=== PATIENT | female | born 1940 | race American Indian/Alaskan Native ===

== ENCOUNTER 2018-08-17 09:55 | Inpatient (IN) | payer MEDICAID ==
[2018-08-17 10:18] VITALS: BMI 24.6
[2018-08-17] MEDS ORDERED: Sodium Chloride 0.9% 1,000 ML IV ONE (10:33)
--- NOTE | 2018-08-17 11:02 | ED PDOC ---
Arrival/HPI - General Chief Complaint: Fever Time Seen by Provider: 08/17/18 10:20 Historian: Patient - History of Present Illness Narrative History of Present Illness (Text): 08/17/18 10:57 78yo female with past medical history of hypertension, Diabetes, renal insufficiency bib the daughter for complaint of fever (Tmax of 102), yellowish productive cough, decreased appetite, generalized weakness x 4days. States she took Tylenol last night. Denies chest pain, SOB, diaphoresis, nausea, abdominal pain, urinary symptoms, sick contact, night sweats, travel, any other complaint. Past Medical History - Provider Review Nursing Documentation Reviewed: Yes - Infectious Disease Hx of Infectious Diseases: None - Cardiac Hx Cardiac Disorders: Yes Hx Hypertension: Yes - Pulmonary Hx Respiratory Disorders: No - Neurological Hx Neurological Disorder: No - HEENT Hx HEENT Disorder: No - Renal Hx Renal Disorder: Yes Other/Comment: Chronic Kidney Disease - Endocrine/Metabolic Hx Endocrine Disorders: Yes Hx Diabetes Mellitus Type 2: Yes Hx Hyperthyroidism: Yes - Hematological/Oncological Hx Blood Disorders: Yes Hx Anemia: Yes - Integumentary Hx Dermatological Disorder: No - Musculoskeletal/Rheumatological Hx Musculoskeletal Disorders: No - Gastrointestinal Hx Gastrointestinal Disorders: No - Genitourinary/Gynecological Hx Genitourinary Disorders: No - Psychiatric Hx Psychophysiologic Disorder: No Hx Substance Use: No - Surgical History Hx Hysterectomy: Yes Other/Comment: Right Breast Lumpectomy - Suicidal Assessment Feels Threatened In Home Enviroment: No Family/Social History - Physician Review Nursing Documentation Reviewed: Yes Family/Social History: Unknown Family HX Smoking Status: Never Smoked Hx Alcohol Use: No Hx Substance Use: No Allergies/Home Meds Allergies/Adverse Reactions: Allergies No Known Allergies Allergy (Verified 08/17/18 10:06) Home Medications: Home Meds Medication Instructions Recorded Confirmed Docusate [Colace] 100 mg PO TID 02/17/13 08/17/18 Hydralazine Hydrochloride 100 mg PO TID 02/17/13 08/17/18 [Hydralazine] Carboxymethylcellulos/Glycerin 1 drop BOTHEYES QID 08/17/18 08/17/18 [Refresh Optive Eye Drops] Doxazosin [Cardura] 2 mg PO DAILY 08/17/18 08/17/18 Epoetin Nabil [Procrit] 40,000 units INJ QWK 08/17/18 08/17/18 Ferrous Sulfate [Feosol] 325 mg PO DAILY 08/17/18 08/17/18 Isosorbide Mononitrate [Isosorbide 30 mg PO TID 08/17/18 08/17/18 Mononitrate ER] Ketorolac Tromethamine [Acular 5 5 ml OP DAILY 08/17/18 08/17/18 ml] Metoprolol Tartrate [Lopressor] 100 mg PO BID 08/17/18 08/17/18 RX: Chlorthalidone [Hygroton] 25 mg PO BID 08/17/18 08/17/18 RX: Gabapentin [Neurontin] 100 mg PO BID 08/17/18 08/17/18 RX: Glimepiride [amaRYL] 2 mg PO DAILY 08/17/18 08/17/18 RX: amLODIPine [Norvasc] 5 mg PO DAILY 08/17/18 08/17/18 Vitamin B Complex/Vit C/Folic 1 tab PO DAILY 08/17/18 08/17/18 [Nephro-Arnoldo] Review of Systems - Physician Review All systems were reviewed & negative as marked: Yes - Review of Systems Constitutional: Fatigue, Fevers Eyes: Normal ENT: Normal Respiratory: Cough, Sputum Cardiovascular: Normal Gastrointestinal: Normal Genitourinary Female: Normal Musculoskeletal: Normal Skin: Normal Neurological: Normal Endocrine: Normal Hemo/Lymphatic: Normal Psychiatric: Normal Physical Exam Vital Signs Reviewed: Yes Vital Signs Temp Pulse Resp BP Pulse Ox 08/17/18 10:18 101.5 F H 96 H 20 184/58 H 94 L Temperature: Febrile Blood Pressure: Normal Pulse: Tachycardic Respiratory Rate: Normal Appearance: Positive for: Well-Appearing, Non-Toxic, Comfortable Pain Distress: None Mental Status: Positive for: Alert and Oriented X 3 - Systems Exam Head: Present: Atraumatic, Normocephalic Pupils: Present: PERRL Extroacular Muscles: Present: EOMI Conjunctiva: Present: Normal Mouth: Present: Moist Mucous Membranes Neck: Present: Normal Range of Motion Respiratory/Chest: Present: Good Air Exchange, Other (bibasilar crackles). No: Respiratory Distress, Accessory Muscle Use, Wheezes, Decreased Breath Sounds, Rales, Retracting, Rhonchi Cardiovascular: Present: Regular Rate and Rhythm, Normal S1, S2. No: Murmurs Abdomen: No: Tenderness, Distention, Peritoneal Signs Back: Present: Normal Inspection Upper Extremity: Present: Normal Inspection. No: Cyanosis, Edema Lower Extremity: Present: Normal Inspection. No: Edema Neurological: Present: GCS=15, CN II-XII Intact, Speech Normal Skin: Present: Warm, Dry, Normal Color. No: Rashes Psychiatric: Present: Alert, Oriented x 3, Normal Insight, Normal Concentration Medical Decision Making ED Course and Treatment: 08/17/18 19:51 78yo female who present to emergency department for stated history. she was febrile on presentation, but not hypoxic. Labs blood culture Rapid flu EKG chest xray Tylenol Albuterol chest xray IMPRESSION: Borderline pulmonary vascular congestion with right perihilar and left basilar airspace disease in question as well. Trace left pleural effusion identified. Clinically correlate further. EKG NSR @ 97bpm. None-stemi Rapid flu negative Lab was reviewed with no leukocytosis. Elevated BNP was noted. First CE was negative. Secondary to pt's age and co morbidities she was admitted for pneumonia Lasix and abx was ordered Case was DW Dr. Vail who accepted pt for admission Result and plan was DW both pt and the daughter by the bedside and they agreed. - RAD Interpretation Radiology Orders: 08/17/18 10:23 CHEST PORTABLE [RAD] Stat - Medication Orders Current Medication Orders: Sodium Chloride (Sodium Chloride 0.9%) 1,000 mls @ 250 mls/hr IV .Q4H ONE Stop: 08/17/18 14:32 Discontinued Medications Acetaminophen (Tylenol 325mg Tab) 650 mg PO STAT STA Stop: 08/17/18 10:34 Disposition/Present on Arrival - Present on Arrival Any Indicators Present on Arrival: No History of DVT/PE: No History of Uncontrolled Diabetes: No Urinary Catheter: No History of Decub. Ulcer: No History Surgical Site Infection Following: None - Disposition Have Diagnosis and Disposition been Completed?: Yes Diagnosis: Pneumonia, CHF (congestive heart failure) Disposition: HOSPITALIZED Disposition Time: 12:00 Patient Plan: Admission Patient Problems: Current Active Problems Problem Status Onset CHF (congestive heart failure) Acute Pneumonia Acute Condition: FAIR
[2018-08-17] MEDS ORDERED: Albuterol 0.083% Inhal Sol (2.5 mg/3 mL) UD INH STA (11:05)
[2018-08-17 11:14] LABS: VENOUS BLOOD GAS BASE EXCESS 2.7 mmol/L (0.0-2.0); VENOUS BLOOD GAS PO2 36 mm/Hg (30-55); VENOUS BLOOD PH 7.41 (7.32-7.43)
[2018-08-17 11:18] LABS: INR 1.19; PARTIAL THROMBOPLASTIN TIME 37.7 Seconds (26.9-38.3); PROTHROMBIN TIME 13.4 SECONDS (9.4-12.5)
[2018-08-17 11:20] LABS: ALB/GLOB RATIO 1.3 (1.1-1.8); ALBUMIN 3.7 g/dL (3.0-4.8); CALCIUM 8.2 mg/dL (8.4-10.5)
[2018-08-17 11:23] LABS: BASO # 0.02 K/mm3 (0.0-2.0); BASO % 0.3 % (0.0-3.0); HEMOGLOBIN 8.5 g/dL (12.0-16.0); LYMPH # 1.4 (1.2-3.4); LYMPH % 17.8 % (22.0-35.0); MEAN CELL VOLUME 89.9 fl (80.0-105.0); MEAN CORPUSCULAR HEMOGLOBIN 28.7 pg (25.0-35.0); MEAN PLATELET VOLUME 10.6 fl (7.0-11.0); MONO # 0.3 (0.1-0.6); MONO % 3.9 % (1.0-6.0); RBC 2.96 10^6/uL (3.5-6.1); RED CELL DISTRIBUTION WIDTH 14.8 % (11.5-14.5)
[2018-08-17 11:30] LABS: TROPONIN I 0.07 ng/mL
--- NOTE | 2018-08-17 11:33 | RAD ---
Date of service: 08/17/2018 HISTORY: cough COMPARISON: No prior. FINDINGS: LUNGS: Right perihilar patchy density is appreciated also is suspicious at the left base. Consider possible multifocal pneumonia. PLEURA: Trace left pleural effusion question at the left costophrenic sulcus is blunted. No pneumothorax bilaterally. No right pleural effusion evident. CARDIOVASCULAR: No aortic atherosclerotic calcification present. Cardiomegaly is not excluded. Borderline pulmonary vascular congestion. OSSEOUS STRUCTURES: No significant abnormalities. VISUALIZED UPPER ABDOMEN: Normal. OTHER FINDINGS: None. IMPRESSION: Borderline pulmonary vascular congestion with right perihilar and left basilar airspace disease in question as well. Trace left pleural effusion identified. Clinically correlate further.
[2018-08-17] MEDS ORDERED: cefTRIAXone 1 gm 1 GM/100 ML BAG IVPB STA (11:41)
[2018-08-17] MEDS ORDERED: Azithromycin 500MG/NS 250ml 500 MG/250 ML BAG IVPB STA (11:41)
--- NOTE | 2018-08-17 12:08 | CARD ---
APPROVED REPORT Date of service: 08/17/2018 EKG Measurement Heart [id number] <Conclusion> Normal sinus rhythm ST & T wave abnormality, Probably Non Specific.
[2018-08-17 12:47] LABS: URINE BILIRUBIN NEGATIVE (NEGATIVE); URINE BLOOD NEGATIVE (NEGATIVE); URINE GLUCOSE (UA) NEGATIVE (NEGATIVE); URINE LEUKOCYTE ESTERASE NEGATIVE Leu/uL (NEGATIVE); URINE PROTEIN 100 mg/dL (<30 mg/dL); URINE UROBILINOGEN 0.2 E.U./dL (<1 E.U./dL)
[2018-08-17 12:48] LABS: URINE APPEARANCE CLEAR (CLEAR); URINE COLOR YELLOW (YELLOW)
[2018-08-17] MEDS ORDERED: Dextrose 50% SYRINGE Inj (50 ml) IV PRN (12:58)
[2018-08-17 13:03] LABS: URINE RBC 0 - 2 /hpf (0-2)
[2018-08-17 13:04] LABS: URINE AMORPHOUS SEDIMENT FEW /hpf; URINE BACTERIA MANY /hpf; URINE COARSE GRANULAR CAST TRACE /hpf
[2018-08-17] MEDS ORDERED: Albuterol-Ipratrop 3 mg / 0.5 (3 ml) UD IH PRN (13:20)
--- NOTE | 2018-08-17 13:55 | CP.PCM.HP ---
<Brett Johnson - Last Filed: 08/17/18 17:20> History of Present Illness - History of Present Illness History of Present Illness: Brett Johnson DO, PGY-1 Hospitalist Admission History and Physical for Dr. Vail CC: fever, cough HPI: Britta is a pleasant 78 year old female with PMH of HTN, DM2, and CKD stage 4 was brought into ED by daughter for concern of worsening fever and cough with Tmax of 102 yesterday. As per daughter, patient has had a productive cough with yellow sputum, generalized weakness, and decreased appetite as well for the past four days. PT was given tylenol at home but daughter states she has not observed any significant improvement. Her daughter states that one of her cousins who she visited with recently was sick with a cough and was given tamiflu. Patient also admits to chills, REHMAN, and having to sleep on 3 pillows at night. She denies CP, SOB, wheezing, blurred vision, abdominal pain/nausea/vomiting, or urinary symptoms. PMD: Colette General Education Instructor: Stephanie, Enrollment Representative: Kulwant Past Medical Hx: HTN, DM2, and CKD stage 4 Past Surgical Hx: R-sided lumpectomy, hysterectomy, b/l cataracts Allergies: NKA Home medications: Lopressor 100 mg BID, Isosorbide mononitrate 30 mg TID, Feosol 325 mg daily, Doxazosin 2 mg daily, chlorthalidone 25 mg BID, Procrit 40 u weekly, Norvasc 5 mg daily, glimepiride 2 mg daily, gabapentin 100 mg BID, hydra lazine 100 mg TID, colace 100 mg TID Family Hx: reviewed, non-contributory Social Hx: denies current or prior tobacco, alcohol, or drug use [place] [facility] [place] Present on Admission - Present on Admission Any Indicators Present on Admission: No History of DVT/PE: No History of Uncontrolled Diabetes: No Urinary Catheter: No Decubitus Ulcer Present: No Review of Systems - Constitutional Constitutional: Chills, Fever - Cardiovascular Cardiovascular: absent: Chest Pain, Diaphoresis, Dyspnea, Edema, Paroxysmal Nocturnal Dyspnea, Pedal Edema - Respiratory Respiratory: Cough, Chest Congestion, Change in Mucous Color. absent: Dyspnea, Hemoptysis, Wheezing - Gastrointestinal Gastrointestinal: absent: Abdominal Pain, Nausea, Vomiting - Genitourinary Genitourinary: absent: Change in Urinary Stream, Difficulty Urinating, Dysuria - Neurological Neurological: Headaches. absent: Confusion Past Patient History - Infectious Disease Hx of Infectious Diseases: None - Past Social History Smoking Status: Never Smoked - CARDIAC Hx Cardiac Disorders: Yes Hx Hypertension: Yes - PULMONARY Hx Respiratory Disorders: No - NEUROLOGICAL Hx Neurological Disorder: No - HEENT Hx HEENT Problems: No - RENAL Hx Chronic Kidney Disease: Yes Other/Comment: Chronic Kidney Disease - ENDOCRINE/METABOLIC Hx Endocrine Disorders: Yes Hx Diabetes Mellitus Type 2: Yes Hx Hyperthyroidism: Yes - HEMATOLOGICAL/ONCOLOGICAL Hx Blood Disorders: Yes Hx Anemia: Yes - INTEGUMENTARY Hx Dermatological Problems: No - MUSCULOSKELETAL/RHEUMATOLOGICAL Hx Musculoskeletal Disorders: No - GASTROINTESTINAL Hx Gastrointestinal Disorders: No - GENITOURINARY/GYNECOLOGICAL Hx Genitourinary Disorders: No - PSYCHIATRIC Hx Psychophysiologic Disorder: No Hx Substance Use: No - SURGICAL HISTORY Hx Hysterectomy: Yes Other/Comment: Right Breast Lumpectomy Meds Allergies/Adverse Reactions: Allergies Allergy/AdvReac Type Severity Reaction Status Date / Time No Known Allergies Allergy Verified 08/17/18 10:06 Physical Exam - Constitutional Appears: Non-toxic, No Acute Distress - Head Exam Head Exam: ATRAUMATIC, NORMOCEPHALIC - Eye Exam Eye Exam: EOMI, Normal appearance, PERRL - ENT Exam ENT Exam: Mucous Membranes Dry - Neck Exam Neck exam: Positive for: Full Rom Additional comments: JVD noted - Respiratory Exam Respiratory Exam: Rales (loudest LLL), Rhonchi (coarse breath sounds b/l, loudest LLL). absent: Accessory Muscle Use, Chest Wall Tenderness, Wheezes, Respiratory Distress - Cardiovascular Exam Cardiovascular Exam: REGULAR RHYTHM, RRR, +S1, +S2. absent: Diastolic murmur, Gallop, Rubs, Systolic Murmur - GI/Abdominal Exam GI & Abdominal Exam: Normal Bowel Sounds, Soft. absent: Tenderness - Extremities Exam Extremities exam: Positive for: normal inspection. Negative for: pedal edema - Back Exam Back exam: NORMAL INSPECTION - Neurological Exam Neurological exam: Alert, Oriented x3 - Psychiatric Exam Psychiatric exam: Normal Affect, Normal Mood - Skin Skin Exam: Dry, Intact, Warm Results - Vital Signs Recent Vital Signs: Last Vital Signs Temp 101.5 F H 08/17/18 10:18 Pulse 96 H 08/17/18 10:18 Resp 20 08/17/18 10:18 BP 140/56 L 08/17/18 12:36 Pulse Ox 94 L 08/17/18 10:18 - Labs Result Diagrams: 08/17/18 10:30 08/17/18 10:30 Labs: Laboratory Results - last 24 hr 08/17/18 08/17/18 08/17/18 10:30 10:30 10:30 WBC 8.0 RBC 2.96 L Hgb 8.5 L Hct 26.6 L MCV 89.9 MCH 28.7 MCHC 32.0 RDW 14.8 H Plt Count 278 MPV 10.6 Neut % (Auto) 78.0 H Lymph % (Auto) 17.8 L [place] % (Auto) 3.9 Eos % (Auto) 0.0 L Baso % (Auto) 0.3 Lymph # (Auto) 1.4 [place] # (Auto) 0.3 Eos # (Auto) 0.0 Baso # (Auto) 0.02 Absolute Neuts (auto) 6.22 PT 13.4 H INR 1.19 APTT 37.7 pO2 VBG pH VBG pCO2 VBG HCO3 VBG Total CO2 VBG O2 Sat (Calc) VBG Base Excess VBG Potassium Glucose Lactate FiO2 Sodium Potassium Chloride Carbon Dioxide Anion Gap BUN Creatinine Est GFR ( Amer) Est GFR (Non-Af Amer) Random Glucose Calcium Phosphorus Magnesium Total Bilirubin AST ALT Alkaline Phosphatase Troponin I NT-Pro-B Natriuret Pep Total Protein Albumin Globulin Albumin/Globulin Ratio Venous Blood Potassium Urine Color Urine Appearance Urine pH Ur Specific [place] Urine Protein Urine Glucose (UA) Urine Ketones Urine Blood Urine Nitrate Urine Bilirubin Urine Urobilinogen Ur Leukocyte Esterase Urine RBC Urine WBC Ur Epithelial Cells Amorphous Sediment Urine Bacteria Coarse Granular Casts Waxy Casts Urine Other Influenza Typ A,B (EIA) Negative for flu a/b 08/17/18 08/17/18 08/17/18 10:30 11:00 11:40 WBC RBC Hgb Hct MCV MCH MCHC RDW Plt Count MPV Neut % (Auto) Lymph % (Auto) [place] % (Auto) Eos % (Auto) Baso % (Auto) Lymph # (Auto) [place] # (Auto) Eos # (Auto) Baso # (Auto) Absolute Neuts (auto) PT INR APTT pO2 36 VBG pH 7.41 VBG pCO2 44.0 VBG HCO3 27.9 VBG Total CO2 29.3 H VBG O2 Sat (Calc) 77.1 H VBG Base Excess 2.7 H VBG Potassium 4.1 Glucose 193 H Lactate 1.5 FiO2 21.0 Sodium 139 141.0 Potassium 4.1 Chloride 105 108.0 H Carbon Dioxide 25 Anion Gap 13 BUN 37 H Creatinine 2.2 H Est GFR ( Amer) 26 Est GFR (Non-Af Amer) 22 Random Glucose 184 H Calcium 8.2 L Phosphorus 3.5 Magnesium 1.9 Total Bilirubin 0.5 AST 33 ALT 28 Alkaline Phosphatase 93 Troponin I 0.07 NT-Pro-B Natriuret Pep 6750 H Total Protein 6.5 Albumin 3.7 Globulin 2.8 Albumin/Globulin Ratio 1.3 Venous Blood Potassium 4.1 Urine Color Urine Appearance Urine pH Ur Specific [place] Urine Protein Urine Glucose (UA) Urine Ketones Urine Blood Urine Nitrate Urine Bilirubin Urine Urobilinogen Ur Leukocyte Esterase Urine RBC Urine WBC Ur Epithelial Cells Amorphous Sediment Urine Bacteria Coarse Granular Casts Waxy Casts Urine Other Influenza Typ A,B (EIA) 08/17/18 12:30 WBC RBC Hgb Hct MCV MCH MCHC RDW Plt Count MPV Neut % (Auto) Lymph % (Auto) [place] % (Auto) Eos % (Auto) Baso % (Auto) Lymph # (Auto) [place] # (Auto) Eos # (Auto) Baso # (Auto) Absolute Neuts (auto) PT INR APTT pO2 VBG pH VBG pCO2 VBG HCO3 VBG Total CO2 VBG O2 Sat (Calc) VBG Base Excess VBG Potassium Glucose Lactate FiO2 Sodium Potassium Chloride Carbon Dioxide Anion Gap BUN Creatinine Est GFR ( Amer) Est GFR (Non-Af Amer) Random Glucose Calcium Phosphorus Magnesium Total Bilirubin AST ALT Alkaline Phosphatase Troponin I NT-Pro-B Natriuret Pep Total Protein Albumin Globulin Albumin/Globulin Ratio Venous Blood Potassium Urine Color Yellow Urine Appearance Clear Urine pH 6.0 Ur Specific [place] 1.025 Urine Protein 100 H Urine Glucose (UA) Negative Urine Ketones Negative Urine Blood Negative Urine Nitrate Negative Urine Bilirubin Negative Urine Urobilinogen 0.2 Ur Leukocyte Esterase Negative Urine RBC 0 - 2 Urine WBC 1 - 3 Ur Epithelial Cells 4 - 5 Amorphous Sediment Few Urine Bacteria Many Coarse Granular Casts Trace Waxy Casts 0 - 2 Urine Other Uyeast Influenza Typ A,B (EIA) Assessment & Plan - Assessment and Plan (Free Text) Assessment: 78 yo F with PMH of HTN, DM2, and CKD stage 4 presents with fever and cough. CXR is suggestive of LLL CAP. Plan: CAP Symptoms suggestive of CAP and LLL infiltrate on CXR Treating with doxycycline 100 mg IVPB BID and rocephin 1 g IVPB daily Received dose of rocephin and zithromax in ED Zithromax held for concern of prolonged QT on EKG in ED F/u blood cx results Robitussin PRN cough and duo-neb PRN for SOB Pulmonary Edema CXR identified b/l vascular congestion in addition to LLL infiltrate Likely 2/2 COPD exacerbation BNP elevated at 6750 Patient also admitted to sleeping on increasing number of pillows at night One dose of lasix 20 mg IVP given in ED, will repeat with another 20 mg dose Strict I & O Monitor for improvement F/u additional cardiology recs Normocytic anemia Likely 2/2 anemia of chronic disease from CKD Per daughter, she follows with Dr. Blum regularly and has received IV iron in the past Continue home iron dose Troponin elevation Mildly elevated at 0.07 Will trend q6h x 2 Likely 2/[address] cardiology consult given hx of CHF F/u additional cardiology recs Hx CKD BUN/Cr are at baseline at 37/2.2 per history obtained from daughter Follows with recruiting and selection consultant regularly Continue to monitor Renal diet and medication doses Hx DM2 Last A1c 7.6 Repeat this visit Hold home PO anti-hyperglycemics ISS while admitted Hx HTN Hold chlorthalidone given hx of CKD Continue other home BP meds DVT/GI PPX: SC heparin, protonix Full Code HH, diabetic diet Monitor on med/surg Patient seen, examined, and plan discussed with my attending Dr. Yared Johnson, Mary AliceO. IM Resident PGY-1 Pager: [phone] <Elvin Vail - Last Filed: 08/17/18 18:42> Results - Vital Signs Recent Vital Signs: Last Vital Signs Temp 101.4 F H 08/17/18 17:08 Pulse 83 08/17/18 18:28 Resp 20 08/17/18 17:08 BP 142/46 L 08/17/18 18:28 Pulse Ox 97 08/17/18 17:08 - Labs Result Diagrams: 08/17/18 10:30 08/17/18 10:30 Labs: Laboratory Results - last 24 hr 08/17/18 08/17/18 08/17/18 10:30 10:30 10:30 WBC 8.0 RBC 2.96 L Hgb 8.5 L Hct 26.6 L MCV 89.9 MCH 28.7 MCHC 32.0 RDW 14.8 H Plt Count 278 MPV 10.6 Neut % (Auto) 78.0 H Lymph % (Auto) 17.8 L [place] % (Auto) 3.9 Eos % (Auto) 0.0 L Baso % (Auto) 0.3 Lymph # (Auto) 1.4 [place] # (Auto) 0.3 Eos # (Auto) 0.0 Baso # (Auto) 0.02 Absolute Neuts (auto) 6.22 PT 13.4 H INR 1.19 APTT 37.7 pO2 VBG pH VBG pCO2 VBG HCO3 VBG Total CO2 VBG O2 Sat (Calc) VBG Base Excess VBG Potassium Glucose Lactate FiO2 Sodium Potassium Chloride Carbon Dioxide Anion Gap BUN Creatinine Est GFR ( Amer) Est GFR (Non-Af Amer) Random Glucose Calcium Phosphorus Magnesium Iron TIBC % Saturation Total Bilirubin AST ALT Alkaline Phosphatase Troponin I NT-Pro-B Natriuret Pep Total Protein Albumin Globulin Albumin/Globulin Ratio TSH 3rd Generation Venous Blood Potassium Urine Color Urine Appearance Urine pH Ur Specific [place] Urine Protein Urine Glucose (UA) Urine Ketones Urine Blood Urine Nitrate Urine Bilirubin Urine Urobilinogen Ur Leukocyte Esterase Urine RBC Urine WBC Ur Epithelial Cells Amorphous Sediment Urine Bacteria Coarse Granular Casts Waxy Casts Urine Other Influenza Typ A,B (EIA) Negative for flu a/b 08/17/18 08/17/18 08/17/18 10:30 11:00 11:40 WBC RBC Hgb Hct MCV MCH MCHC RDW Plt Count MPV Neut % (Auto) Lymph % (Auto) [place] % (Auto) Eos % (Auto) Baso % (Auto) Lymph # (Auto) [place] # (Auto) Eos # (Auto) Baso # (Auto) Absolute Neuts (auto) PT INR APTT pO2 36 VBG pH 7.41 VBG pCO2 44.0 VBG HCO3 27.9 VBG Total CO2 29.3 H VBG O2 Sat (Calc) 77.1 H VBG Base Excess 2.7 H VBG Potassium 4.1 Glucose 193 H Lactate 1.5 FiO2 21.0 Sodium 139 141.0 Potassium 4.1 Chloride 105 108.0 H Carbon Dioxide 25 Anion Gap 13 BUN 37 H Creatinine 2.2 H Est GFR ( Amer) 26 Est GFR (Non-Af Amer) 22 Random Glucose 184 H Calcium 8.2 L Phosphorus 3.5 Magnesium 1.9 Iron TIBC % Saturation Total Bilirubin 0.5 AST 33 ALT 28 Alkaline Phosphatase 93 Troponin I 0.07 NT-Pro-B Natriuret Pep 6750 H Total Protein 6.5 Albumin 3.7 Globulin 2.8 Albumin/Globulin Ratio 1.3 TSH 3rd Generation Venous Blood Potassium 4.1 Urine Color Urine Appearance Urine pH Ur Specific [place] Urine Protein Urine Glucose (UA) Urine Ketones Urine Blood Urine Nitrate Urine Bilirubin Urine Urobilinogen Ur Leukocyte Esterase Urine RBC Urine WBC Ur Epithelial Cells Amorphous Sediment Urine Bacteria Coarse Granular Casts Waxy Casts Urine Other Influenza Typ A,B (EIA) 08/17/18 08/17/18 08/17/18 12:30 14:20 14:45 WBC RBC Hgb Hct MCV MCH MCHC RDW Plt Count MPV Neut % (Auto) Lymph % (Auto) [place] % (Auto) Eos % (Auto) Baso % (Auto) Lymph # (Auto) [place] # (Auto) Eos # (Auto) Baso # (Auto) Absolute Neuts (auto) PT INR APTT pO2 VBG pH VBG pCO2 VBG HCO3 VBG Total CO2 VBG O2 Sat (Calc) VBG Base Excess VBG Potassium Glucose Lactate FiO2 Sodium Potassium Chloride Carbon Dioxide Anion Gap BUN Creatinine Est GFR ( Amer) Est GFR (Non-Af Amer) Random Glucose Calcium Phosphorus Magnesium Iron 10 L TIBC 207 L % Saturation 5 L Total Bilirubin AST ALT Alkaline Phosphatase Troponin I 0.07 NT-Pro-B Natriuret Pep Total Protein Albumin Globulin Albumin/Globulin Ratio TSH 3rd Generation Venous Blood Potassium Urine Color Yellow Urine Appearance Clear Urine pH 6.0 Ur Specific [place] 1.025 Urine Protein 100 H Urine Glucose (UA) Negative Urine Ketones Negative Urine Blood Negative Urine Nitrate Negative Urine Bilirubin Negative Urine Urobilinogen 0.2 Ur Leukocyte Esterase Negative Urine RBC 0 - 2 Urine WBC 1 - 3 Ur Epithelial Cells 4 - 5 Amorphous Sediment Few Urine Bacteria Many Coarse Granular Casts Trace Waxy Casts 0 - 2 Urine Other [place]yeast Influenza Typ A,B (EIA) 08/17/18 14:45 WBC RBC Hgb Hct MCV MCH MCHC RDW Plt Count MPV Neut % (Auto) Lymph % (Auto) [place] % (Auto) Eos % (Auto) Baso % (Auto) Lymph # (Auto) [place] # (Auto) Eos # (Auto) Baso # (Auto) Absolute Neuts (auto) PT INR APTT pO2 VBG pH VBG pCO2 VBG HCO3 VBG Total CO2 VBG O2 Sat (Calc) VBG Base Excess VBG Potassium Glucose Lactate FiO2 Sodium Potassium Chloride Carbon Dioxide Anion Gap BUN Creatinine Est GFR ( Amer) Est GFR (Non-Af Amer) Random Glucose Calcium Phosphorus Magnesium Iron TIBC % Saturation Total Bilirubin AST ALT Alkaline Phosphatase Troponin I NT-Pro-B Natriuret Pep Total Protein Albumin Globulin Albumin/Globulin Ratio TSH 3rd Generation 1.68 Venous Blood Potassium Urine Color Urine Appearance Urine pH Ur Specific [place] Urine Protein Urine Glucose (UA) Urine Ketones Urine Blood Urine Nitrate Urine Bilirubin Urine Urobilinogen Ur Leukocyte Esterase Urine RBC Urine WBC Ur Epithelial Cells Amorphous Sediment Urine Bacteria Coarse Granular Casts Waxy Casts Urine Other Influenza Typ A,B (EIA) Attending/Attestation - Attestation I have personally seen and examined this patient.: Yes I have fully participated in the care of the patient.: Yes I have reviewed all pertinent clinical information: Yes Notes (Text): 08/17/18 18:38 78 year old female with past medical history of hypertension, diabetes, and CKD who presents today with complaint of fever, cough and generalized weakness. She was found to have multifocal infiltrates with pulmonary congestion on CXR with elevated probnp at 6750. Will start on iv antibiotics. Follow up on cultures. IV lasix is ordered and cardiology evaluation is requested. Resume home medications for hypertension; hold cholthalidone for now give CKD. Anemia and creatinine are baseline as per daughter at bedside. Will monitor. Elvin Vail MD Hospitalist.
[2018-08-17 15:04] LABS: % IRON SATURATION 5 % (20-55); IRON 10 ug/dL (45-180); TOTAL IRON BINDING CAPACITY 207 ug/dL (265-497)
[2018-08-17] MEDS: Insulin Reg-MEDIUM-Coverage SC SCH ×2 (16:59→22:19)
[2018-08-17] MEDS ORDERED: Insulin Regular 1 UNITS/0.01 ML ML ONE (17:01)
[2018-08-17] MEDS: guaiFENesin 100 mg/5 ml Syrup UD PO PRN (20:25)
[2018-08-17] MEDS ORDERED: Pneumococcal 23-Valent Vaccine IM ONE (23:01)
[2018-08-17] MEDS ORDERED: Influenza Vaccine 60 mcg/0.5 mL SYR (4YR UP) IM ONE (23:01)
[2018-08-18] MEDS: Pantoprazole 40 mg EC Tab PO SCH (05:27)
[2018-08-18] MEDS: guaiFENesin 100 mg/5 ml Syrup UD PO PRN (05:42)
[2018-08-18 07:46] LABS: BASO # 0.01 K/mm3 (0.0-2.0); BASO % 0.2 % (0.0-3.0); EOS % 0.2 % (1.5-5.0); HEMOGLOBIN 7.9 g/dL (12.0-16.0); LYMPH % 15.8 % (22.0-35.0); MEAN CELL VOLUME 89.7 fl (80.0-105.0); MEAN CORPUSCULAR HGB CONC 32.4 g/dl (31.0-37.0); MONO # 0.3 (0.1-0.6); MONO % 4.8 % (1.0-6.0); RBC 2.72 10^6/uL (3.5-6.1); RED CELL DISTRIBUTION WIDTH 14.9 % (11.5-14.5); WHITE BLOOD COUNT 6.3 10^3/uL (4.5-11.0)
[2018-08-18 08:01] LABS: ALB/GLOB RATIO 1.3 (1.1-1.8); ALBUMIN 3.3 g/dL (3.0-4.8); ALT/SGPT 26 U/L (7-56); AST/SGOT 33 U/L (14-36); BLOOD UREA NITROGEN 41 mg/dL (7-21); CALCIUM 7.8 mg/dL (8.4-10.5); GFR NON-AFRICAN AMERICAN 19; HDL CHOLESTEROL 41 mg/dL (29-60)
[2018-08-18 08:23] LABS: LDL CHOLESTEROL < 30 mg/dL (0-129)
[2018-08-18] MEDS ORDERED: Azithromycin 500MG/NS 250ml 500 MG/250 ML BAG IVPB SCH (10:00)
[2018-08-18] MEDS: Multivitamin Vitamin B Complex (Nephro-Vite) Tab PO SCH (10:02)
[2018-08-18] MEDS: Insulin Reg-MEDIUM-Coverage SC SCH ×6 (10:03→22:37)
--- NOTE | 2018-08-18 11:20 | CP.PCM.CON ---
History of Present Illness - History of Present Illness History of Present Illness: Awake, alert, oriented, no distress, daughter at bedside Reason for consultation: Cardiac evaluation of fever and cough, history of c ongestive heart failure, hypertension,diabetes, stage 4 chronic kidney disease. Brief history of present illness: A 78 year old female who was brought to the ER due to fever and cough and generalized weakness. Productive cough with yellow sputum. Daughter gave her tylenol but no significant improvement. History of hypertension,diabetes, chronic kidney disease as some point with hemodialysis. (now no hemodialysis) right sided lumpectomy, hysterectomy, cataracts. Seen and examined by me and Dr. Galarza Review of Systems - Review of Systems All systems: reviewed and no additional remarkable complaints except Review of Systems: as per HPI Past Patient History - Infectious Disease Hx of Infectious Diseases: None - Past Social History Smoking Status: Never Smoked - CARDIAC Hx Cardiac Disorders: Yes Hx Congestive Heart Failure: Yes Hx Hypertension: Yes - PULMONARY Hx Respiratory Disorders: No - NEUROLOGICAL Hx Neurological Disorder: Yes Other/Comment: neuropathy pins and needles, throbbing pain to legs and feet - HEENT Hx HEENT Problems: Yes Hx Cataracts: Yes (b/l sx) - RENAL Hx Chronic Kidney Disease: Yes ( 4) - ENDOCRINE/METABOLIC Hx Endocrine Disorders: Yes Hx Diabetes Mellitus Type 2: Yes Hx Hyperthyroidism: Yes - HEMATOLOGICAL/ONCOLOGICAL Hx Blood Disorders: Yes Hx Anemia: Yes (iron deficiency) Other/Comment: pt takes iron po and juest started procrit for iron deficiency anemia - INTEGUMENTARY Hx Dermatological Problems: Yes Other/Comment: thick toenails multiple skin discolorations ble, multiple small light skin pigmentation ti arms and legs, dark brown areas of skin rle, dark raised scab to rle, dark skin spots to face - MUSCULOSKELETAL/RHEUMATOLOGICAL Hx Musculoskeletal Disorders: Yes Hx Falls: No Hx Unsteady Gait: Yes - GASTROINTESTINAL Hx Gastrointestinal Disorders: Yes (chronic constipation takes colace) - GENITOURINARY/GYNECOLOGICAL Hx Genitourinary Disorders: Yes (fibroids) - PSYCHIATRIC Hx Psychophysiologic Disorder: No Hx Substance Use: No - SURGICAL HISTORY Hx Hysterectomy: Yes (due to fibroids) Other/Comment: Right Breast Lumpectomy benign Meds Allergies/Adverse Reactions: Allergies Allergy/AdvReac Type Severity Reaction Status Date / Time No Known Allergies Allergy Verified 08/17/18 10:06 - Medications Medications: Current Medications Acetaminophen (Tylenol 325mg Tab) 650 mg PO Q6H PRN PRN Reason: Pain, moderate (4-7) Last Admin: 08/18/18 05:28 Dose: 650 mg Amlodipine Besylate (Norvasc) 5 mg PO DAILY [facility] Last Admin: 08/18/18 10:01 Dose: 5 mg Artificial Tears (Artificial Tears Opht Oint) 0 gm OU QID [facility] Dextrose (Dextrose 50% Inj) 0 ml IV STAT PRN; Protocol PRN Reason: Hypoglycemia Protocol Docusate Sodium (Colace) 100 mg PO TID [facility] Last Admin: 08/18/18 10:02 Dose: 100 mg Doxazosin Mesylate (Cardura) 2 mg PO DAILY [facility] Last Admin: 08/18/18 10:02 Dose: 2 mg Ferrous Sulfate (Feosol) 324 mg PO DAILY [facility] Last Admin: 08/18/18 10:02 Dose: 324 mg Gabapentin (Neurontin) 100 mg PO BID [facility]; Protocol Last Admin: 08/18/18 10:00 Dose: 100 mg Guaifenesin (Robitussin) 100 mg PO Q4H PRN PRN Reason: Cough Last Admin: 08/18/18 05:42 Dose: 100 mg Heparin Sodium (Porcine) (Heparin) 5,000 units SC Q8 [facility]; Protocol Last Admin: 08/18/18 05:27 Dose: 5,000 units Hydralazine HCl (Apresoline) 100 mg PO TID [facility] Last Admin: 08/18/18 10:01 Dose: 100 mg Dextrose (Dextrose 5% In Water 1000 Ml) 1,000 mls @ 0 mls/hr IV .Q0M PRN; Protocol PRN Reason: Hypoglycemia Protocol Ceftriaxone Sodium (Rocephin 1 Gram Ivpb) 1 gm in 100 mls @ 100 mls/hr IVPB DAILY [facility]; Protocol Doxycycline Hyclate 100 mg/ (Sodium Chloride) 100 mls @ 100 mls/hr IVPB Q12 [facility]; Protocol Last Admin: 08/18/18 09:56 Dose: 100 mls/hr Insulin Human Regular (Humulin R Med) 0 units SC ACHS [facility]; Protocol Last Admin: 08/18/18 10:03 Dose: Not Given Isosorbide Mononitrate (Imdur Er) 30 mg PO TID [facility] Last Admin: 08/18/18 10:02 Dose: 30 mg Metoprolol Tartrate (Lopressor) 100 mg PO BID [facility] Last Admin: 08/18/18 09:59 Dose: 100 mg Ketorolac Tromethamine [Acular ] 5 Ml (Home) 0 ml OP DAILY [facility] Prednisolone Acet 1% ([place] (Home)) 0 ml OP DAILY [facility] Pantoprazole Sodium (Protonix Ec Tab) 40 mg PO 0600 [facility] Last Admin: 08/18/18 05:27 Dose: 40 mg Vitamin B Complex/Vit C/Folic Acid (Nephro-Arnoldo) 1 tab PO DAILY [facility] Last Admin: 08/18/18 10:02 Dose: 1 tab Physical Exam - Constitutional Appears: Non-toxic, No Acute Distress - Head Exam Head Exam: NORMAL INSPECTION, NORMOCEPHALIC - Eye Exam Eye Exam: Normal appearance Pupil Exam: NORMAL ACCOMODATION - ENT Exam ENT Exam: Mucous Membranes Moist, Normal Exam - Respiratory Exam Respiratory Exam: Decreased Breath Sounds, Rhonchi, NORMAL BREATHING PATTERN - Cardiovascular Exam Cardiovascular Exam: +S1, +S2 - GI/Abdominal Exam GI & Abdominal Exam: Normal Bowel Sounds, Soft - Extremities Exam Extremities exam: Positive for: full ROM, normal capillary refill - Neurological Exam Neurological exam: Alert, Oriented x3 - Psychiatric Exam Psychiatric exam: Normal Affect, Normal Mood - Skin Skin Exam: Dry, Normal Color, Warm Results - Vital Signs Recent Vital Signs: Last Vital Signs Temp 100.7 F H 08/18/18 06:00 Pulse 78 08/18/18 10:01 Resp 18 08/18/18 06:00 BP 159/52 H 08/18/18 10:01 Pulse Ox 95 08/18/18 06:00 - Labs Result Diagrams: 08/18/18 07:30 08/18/18 07:30 Labs: Laboratory Results - last 24 hr 08/17/18 08/17/18 08/17/18 10:30 10:30 10:30 WBC 8.0 RBC 2.96 L Hgb 8.5 L Hct 26.6 L MCV 89.9 MCH 28.7 MCHC 32.0 RDW 14.8 H Plt Count 278 MPV 10.6 Neut % (Auto) 78.0 H Lymph % (Auto) 17.8 L [place] % (Auto) 3.9 Eos % (Auto) 0.0 L Baso % (Auto) 0.3 Lymph # (Auto) 1.4 Mineral # (Auto) 0.3 Eos # (Auto) 0.0 Baso # (Auto) 0.02 Absolute Neuts (auto) 6.22 pO2 VBG pH VBG pCO2 VBG HCO3 VBG Total CO2 VBG O2 Sat (Calc) VBG Base Excess VBG Potassium Glucose Lactate FiO2 Sodium 139 Potassium 4.1 Chloride 105 Carbon Dioxide 25 Anion Gap 13 BUN 37 H Creatinine 2.2 H Est GFR ( Amer) 26 Est GFR (Non-Af Amer) 22 POC Glucose (mg/dL) Random Glucose 184 H Calcium 8.2 L Phosphorus 3.5 Magnesium 1.9 Iron TIBC % Saturation Transferrin Ferritin Total Bilirubin 0.5 AST 33 ALT 28 Alkaline Phosphatase 93 Troponin I 0.07 NT-Pro-B Natriuret Pep Total Protein 6.5 Albumin 3.7 Globulin 2.8 Albumin/Globulin Ratio 1.3 Triglycerides Cholesterol LDL Cholesterol Direct HDL Cholesterol Procalcitonin TSH 3rd Generation Venous Blood Potassium Urine Color Urine Appearance Urine pH Ur Specific [place] Urine Protein Urine Glucose (UA) Urine Ketones Urine Blood Urine Nitrate Urine Bilirubin Urine Urobilinogen Ur Leukocyte Esterase Urine RBC Urine WBC Ur Epithelial Cells Amorphous Sediment Urine Bacteria Coarse Granular Casts Waxy Casts Urine Other Influenza Typ A,B (EIA) Negative for flu a/b 08/17/18 08/17/18 08/17/18 11:00 11:40 12:30 WBC RBC Hgb Hct MCV MCH MCHC RDW Plt Count MPV Neut % (Auto) Lymph % (Auto) Mineral % (Auto) Eos % (Auto) Baso % (Auto) Lymph # (Auto) Mineral # (Auto) Eos # (Auto) Baso # (Auto) Absolute Neuts (auto) pO2 36 VBG pH 7.41 VBG pCO2 44.0 VBG HCO3 27.9 VBG Total CO2 29.3 H VBG O2 Sat (Calc) 77.1 H VBG Base Excess 2.7 H VBG Potassium 4.1 Glucose 193 H Lactate 1.5 FiO2 21.0 Sodium 141.0 Potassium Chloride 108.0 H Carbon Dioxide Anion Gap BUN Creatinine Est GFR ( Amer) Est GFR (Non-Af Amer) POC Glucose (mg/dL) Random Glucose Calcium Phosphorus Magnesium Iron TIBC % Saturation Transferrin Ferritin Total Bilirubin AST ALT Alkaline Phosphatase Troponin I NT-Pro-B Natriuret Pep 6750 H Total Protein Albumin Globulin Albumin/Globulin Ratio Triglycerides Cholesterol LDL Cholesterol Direct HDL Cholesterol Procalcitonin TSH 3rd Generation Venous Blood Potassium 4.1 Urine Color Yellow Urine Appearance Clear Urine pH 6.0 Ur Specific [place] 1.025 Urine Protein 100 H Urine Glucose (UA) Negative Urine Ketones Negative Urine Blood Negative Urine Nitrate Negative Urine Bilirubin Negative Urine Urobilinogen 0.2 Ur Leukocyte Esterase Negative Urine RBC 0 - 2 Urine WBC 1 - 3 Ur Epithelial Cells 4 - 5 Amorphous Sediment Few Urine Bacteria Many Coarse Granular Casts Trace Waxy Casts 0 - 2 Urine Other Uyeast Influenza Typ A,B (EIA) 08/17/18 08/17/18 08/17/18 14:20 14:20 14:20 WBC RBC Hgb Hct MCV MCH MCHC RDW Plt Count MPV Neut % (Auto) Lymph % (Auto) Mineral % (Auto) Eos % (Auto) Baso % (Auto) Lymph # (Auto) Mineral # (Auto) Eos # (Auto) Baso # (Auto) Absolute Neuts (auto) pO2 VBG pH VBG pCO2 VBG HCO3 VBG Total CO2 VBG O2 Sat (Calc) VBG Base Excess VBG Potassium Glucose Lactate FiO2 Sodium Potassium Chloride Carbon Dioxide Anion Gap BUN Creatinine Est GFR ( Amer) Est GFR (Non-Af Amer) POC Glucose (mg/dL) Random Glucose Calcium Phosphorus Magnesium Iron 10 L TIBC 207 L % Saturation 5 L Transferrin 142.03 L Ferritin Total Bilirubin AST ALT Alkaline Phosphatase Troponin I NT-Pro-B Natriuret Pep Total Protein Albumin Globulin Albumin/Globulin Ratio Triglycerides Cholesterol LDL Cholesterol Direct HDL Cholesterol Procalcitonin 0.32 TSH 3rd Generation Venous Blood Potassium Urine Color Urine Appearance Urine pH Ur Specific [place] Urine Protein Urine Glucose (UA) Urine Ketones Urine Blood Urine Nitrate Urine Bilirubin Urine Urobilinogen Ur Leukocyte Esterase Urine RBC Urine WBC Ur Epithelial Cells Amorphous Sediment Urine Bacteria Coarse Granular Casts Waxy Casts Urine Other Influenza Typ A,B (EIA) 08/17/18 08/17/18 08/17/18 14:20 14:45 14:45 WBC RBC Hgb Hct MCV MCH MCHC RDW Plt Count MPV Neut % (Auto) Lymph % (Auto) Mineral % (Auto) Eos % (Auto) Baso % (Auto) Lymph # (Auto) Mineral # (Auto) Eos # (Auto) Baso # (Auto) Absolute Neuts (auto) pO2 VBG pH VBG pCO2 VBG HCO3 VBG Total CO2 VBG O2 Sat (Calc) VBG Base Excess VBG Potassium Glucose Lactate FiO2 Sodium Potassium Chloride Carbon Dioxide Anion Gap BUN Creatinine Est GFR ( Amer) Est GFR (Non-Af Amer) POC Glucose (mg/dL) Random Glucose Calcium Phosphorus Magnesium Iron TIBC % Saturation Transferrin Ferritin 899.0 Total Bilirubin AST ALT Alkaline Phosphatase Troponin I 0.07 NT-Pro-B Natriuret Pep Total Protein Albumin Globulin Albumin/Globulin Ratio Triglycerides Cholesterol LDL Cholesterol Direct HDL Cholesterol Procalcitonin TSH 3rd Generation 1.68 Venous Blood Potassium Urine Color Urine Appearance Urine pH Ur Specific [place] Urine Protein Urine Glucose (UA) Urine Ketones Urine Blood Urine Nitrate Urine Bilirubin Urine Urobilinogen Ur Leukocyte Esterase Urine RBC Urine WBC Ur Epithelial Cells Amorphous Sediment Urine Bacteria Coarse Granular Casts Waxy Casts Urine Other Influenza Typ A,B (EIA) 08/17/18 08/17/18 08/18/18 21:49 21:59 06:23 WBC RBC Hgb Hct MCV MCH MCHC RDW Plt Count MPV Neut % (Auto) Lymph % (Auto) Mineral % (Auto) Eos % (Auto) Baso % (Auto) Lymph # (Auto) [place] # (Auto) Eos # (Auto) Baso # (Auto) Absolute Neuts (auto) pO2 VBG pH VBG pCO2 VBG HCO3 VBG Total CO2 VBG O2 Sat (Calc) VBG Base Excess VBG Potassium Glucose Lactate FiO2 Sodium Potassium Chloride Carbon Dioxide Anion Gap BUN Creatinine Est GFR ( Amer) Est GFR (Non-Af Amer) POC Glucose (mg/dL) 91 75 Random Glucose Calcium Phosphorus Magnesium Iron TIBC % Saturation Transferrin Ferritin Total Bilirubin AST ALT Alkaline Phosphatase Troponin I 0.06 NT-Pro-B Natriuret Pep Total Protein Albumin Globulin Albumin/Globulin Ratio Triglycerides Cholesterol LDL Cholesterol Direct HDL Cholesterol Procalcitonin TSH 3rd Generation Venous Blood Potassium Urine Color Urine Appearance Urine pH Ur Specific [place] Urine Protein Urine Glucose (UA) Urine Ketones Urine Blood Urine Nitrate Urine Bilirubin Urine Urobilinogen Ur Leukocyte Esterase Urine RBC Urine WBC Ur Epithelial Cells Amorphous Sediment Urine Bacteria Coarse Granular Casts Waxy Casts Urine Other Influenza Typ A,B (EIA) 08/18/18 08/18/18 08/18/18 07:30 07:30 10:41 WBC 6.3 D RBC 2.72 L Hgb 7.9 L Hct 24.4 L MCV 89.7 MCH 29.0 MCHC 32.4 RDW 14.9 H Plt Count 263 MPV 10.0 Neut % (Auto) 79.0 H Lymph % (Auto) 15.8 L [place] % (Auto) 4.8 Eos % (Auto) 0.2 L Baso % (Auto) 0.2 Lymph # (Auto) 1.0 L [place] # (Auto) 0.3 Eos # (Auto) 0.0 Baso # (Auto) 0.01 Absolute Neuts (auto) 4.96 pO2 VBG pH VBG pCO2 VBG HCO3 VBG Total CO2 VBG O2 Sat (Calc) VBG Base Excess VBG Potassium Glucose Lactate FiO2 Sodium 140 Potassium 3.8 Chloride 107 Carbon Dioxide 28 Anion Gap 9 L BUN 41 H Creatinine 2.4 H Est GFR ( Amer) 24 Est GFR (Non-Af Amer) 19 POC Glucose (mg/dL) 220 H Random Glucose 119 H Calcium 7.8 L Phosphorus 4.3 Magnesium 1.7 Iron TIBC % Saturation Transferrin Ferritin Total Bilirubin 0.4 AST 33 ALT 26 Alkaline Phosphatase 72 Troponin I NT-Pro-B Natriuret Pep Total Protein 6.0 Albumin 3.3 Globulin 2.7 Albumin/Globulin Ratio 1.3 Triglycerides 85 Cholesterol 110 L LDL Cholesterol Direct < 30 HDL Cholesterol 41 Procalcitonin TSH 3rd Generation Venous Blood Potassium Urine Color Urine Appearance Urine pH Ur Specific [place] Urine Protein Urine Glucose (UA) Urine Ketones Urine Blood Urine Nitrate Urine Bilirubin Urine Urobilinogen Ur Leukocyte Esterase Urine RBC Urine WBC Ur Epithelial Cells Amorphous Sediment Urine Bacteria Coarse Granular Casts Waxy Casts Urine Other Influenza Typ A,B (EIA) Assessment & Plan - Assessment and Plan (Free Text) Assessment: A 78 year old female who was brought to the ER due to fever and cough and generalized weakness and loss of appetite. Productive cough with yellow sputum. Temperature was 102F, Daughter gave her tylenol but no significant improvement. History of hypertension,diabetes, chronic kidney disease as some point with hemodialysis. (now no hemodialysis) right sided lumpectomy, hysterectomy, cataracts. Chest X ray showed right perihilar patchy density and also left suggestive of pneumonia. Borderline pulmonary vascular congestion. EKG showed normal sinus rhythm, ST-T wave abnormality probably no specific. Troponin borderline elevated 0.07/0.07/0.06. Denies chest pain,possibly secondary to renal insufficiency. Elevated BNP. Denies shortness of breath but coughing yellow sputum. Echo done on 01/27/17 showed mild concentric left ventricular hypertrophy,transmitral pattern is Grade II pseudonormal filling dynamics. Elevated left atrial pressure. RV systolic function normal. moderately dilated atrium,mild MR, moderate TR , RVSP 55% with moderate pulmonary hypertension. Low grade fever. Pneumonia. Tylenol PRN, continue IV antibiotics. For Stress test. Plan: No distress, denies shortness of breath PRN medication for coughing Heart rate controlled Blood pressure control Will order Echo to evaluate LV function On Norvasc 5 mg daily, Cardura 2 mg daily, Apresoline 100 mg TID Imdur 30 mg TID, Lopressor 100 mg BID Continue IV fluids for hydration Continue IV antibiotics. Continue current treatment Continue current medications Further recommendation during hospital course Will follow up Seen and examined by me and Dr. Galarza Thank you Dr. Vail for the opportunity of taking care of Britta Davis - Date & Time Date: 08/18/18 Time: 06:50
[2018-08-18] MEDS: PREDNISOLONE ACETATE 1% OP SCH (11:39)
[2018-08-18] MEDS: KETOROLAC TROMETHAMINE OP SCH (11:41)
[2018-08-18] MEDS: cefTRIAXone 1 gm 1 GM/100 ML BAG IVPB SCH (11:44)
[2018-08-18] MEDS: Levalbuterol 0.63 MG/3 ML Inhal Soln UD IH SCH ×2 (13:54→19:59)
--- NOTE | 2018-08-18 14:36 | CARD ---
APPROVED REPORT Date of service: 08/18/2018 EXAM: Two-dimensional and M-mode echocardiogram with Doppler and color Doppler. INDICATION LV Function:SystolicDiastolic 2D DIMENSIONS Left Atrium (2D)4.2 (1.6-4.0cm)IVSd1.6 (0.7-1.1cm) LVDd4.2 (3.9-5.9cm)PWd1.5 (0.7-1.1cm) LVDs2.6 (2.5-4.0cm)FS (%) 37.9 % LVEF (%)68.4 (>50%) M-Mode DIMENSIONS Aortic Root2.10 (2.2-3.7cm)Aortic Cusp Exc.1.00 (1.5-2.0cm) Aortic Valve AoV Peak Ywejqver872.0cm/Axel Peak GR.16mmHg Mitral Valve MV E Fndoqzrs868.0cm/sMV A Srfskwmy96.5cm/sE/A ratio1.4 TDI E/Lateral E'0.0E/Medial E'0.0 Tricuspid Valve TR Peak [id number]/sTR Peak Gr.51mmHg LEFT VENTRICLE The left ventricle is normal size. There is moderate concentric left ventricular hypertrophy. The left ventricular function is normal.EF-65% There is normal LV segmental wall motion. Transmitral Doppler flow pattern is Grade II-pseudonormal filling dynamics. No left ventricle thrombus noted on this study. There is no ventricular septal defect visualized. There is no left ventricular aneurysm. There is no mass noted in the left ventricle. RIGHT VENTRICLE The right ventricle is normal size. There is normal right ventricular wall thickness. The right ventricular systolic function is normal. ATRIA The left atrium is mildly dilated. The right atrium size is normal. The interatrial septum is intact with no evidence for an atrial septal defect. AORTIC VALVE The aortic valve is moderately thickened. The aortic valve is moderately calcified. No aortic regurgitation is present. Aortic sclerosis Vs mild There is no aortic valvular vegetation. MITRAL VALVE The mitral valve is thickened but opens well. Mitral annular calcification is mild to moderate. Mitral regurgitation is mild to moderate. There is no mitral valve stenosis. There is no evidence of mitral valve prolapse. TRICUSPID VALVE The tricuspid valve leaflets are thickened , but open well. There is moderate tricuspid regurgitation.RVSP-51 mmof Hg. There is no tricuspid valve stenosis. There is no tricuspid valve prolapse or vegetation. PULMONIC VALVE The pulmonic valve is mildly thickened. TRivial PI. There is no pulmonic valvular stenosis. GREAT VESSELS The aortic root is normal in size. The ascending aorta is normal in size. The pulmonary artery is normal. The IVC is normal in size and collapses >50% with inspiration. PERICARDIAL EFFUSION There is no pleural effusion. There is a trace pericardial effusion. <Conclusion> The left ventricle is normal size. There is moderate concentric left ventricular hypertrophy. The left ventricular function is normal.EF-65% Aortic sclerosis Vs mild Mitral regurgitation is mild to moderate. There is moderate tricuspid regurgitation.RVSP-51 mmof Hg. The IVC is normal in size and collapses >50% with inspiration. There is a trace pericardial effusion. No Vegetation or thrombus noted.
--- NOTE | 2018-08-18 14:47 | CP.PCM.PN ---
<Brett Johnson - Last Filed: 08/18/18 14:57> Subjective - Date & Time of Evaluation Date of Evaluation: 08/18/18 Time of Evaluation: 07:10 - Subjective Subjective: Brett Johnson DO, PGY-1 Hospitalist Progress Note for Dr. Vail Patient was seen and examined at bedside this AM. She reports she is feeling better this AM. She reports her REHMAN, SOB, and cough have improved since admission. She requests primary team contact her PMD and data report analyst, Dr. Blum, about her hospitalization. She otherwise denies CP, wheezing, nausea/vomiting/diarrhea, or urinary complaints. Objective - Vital Signs/Intake and Output Vital Signs (last 24 hours): Temp Pulse Resp BP Pulse Ox 100.7 F H 78 18 159/52 H 95 08/18/18 06:00 08/18/18 10:01 08/18/18 06:00 08/18/18 10:01 08/18/18 06:00 Intake and Output: 08/18/18 08/18/18 06:59 18:59 Intake Total 660 Balance 660 - Medications Medications: Current Medications Acetaminophen (Tylenol 325mg Tab) 650 mg PO Q6H PRN PRN Reason: Pain, moderate (4-7) Last Admin: 08/18/18 05:28 Dose: 650 mg Amlodipine Besylate (Norvasc) 5 mg PO DAILY [facility] Last Admin: 08/18/18 10:01 Dose: 5 mg Artificial Tears (Artificial Tears Opht Oint) 0 gm OU QID [facility] Dextrose (Dextrose 50% Inj) 0 ml IV STAT PRN; Protocol PRN Reason: Hypoglycemia Protocol Docusate Sodium (Colace) 100 mg PO TID [facility] Last Admin: 08/18/18 10:02 Dose: 100 mg Doxazosin Mesylate (Cardura) 2 mg PO DAILY [facility] Last Admin: 08/18/18 10:02 Dose: 2 mg Ferrous Sulfate (Feosol) 324 mg PO DAILY [facility] Last Admin: 08/18/18 10:02 Dose: 324 mg Gabapentin (Neurontin) 100 mg PO BID [facility]; Protocol Last Admin: 08/18/18 10:00 Dose: 100 mg Guaifenesin (Robitussin) 100 mg PO Q4H PRN PRN Reason: Cough Last Admin: 08/18/18 05:42 Dose: 100 mg Heparin Sodium (Porcine) (Heparin) 5,000 units SC Q8 [facility]; Protocol Last Admin: 08/18/18 05:27 Dose: 5,000 units Hydralazine HCl (Apresoline) 100 mg PO TID [facility] Last Admin: 08/18/18 10:01 Dose: 100 mg Dextrose (Dextrose 5% In Water 1000 Ml) 1,000 mls @ 0 mls/hr IV .Q0M PRN; Protocol PRN Reason: Hypoglycemia Protocol Ceftriaxone Sodium (Rocephin 1 Gram Ivpb) 1 gm in 100 mls @ 100 mls/hr IVPB DAILY [facility]; Protocol Last Admin: 08/18/18 11:44 Dose: 100 mls/hr Doxycycline Hyclate 100 mg/ (Sodium Chloride) 100 mls @ 100 mls/hr IVPB Q12 [facility]; Protocol Last Admin: 08/18/18 09:56 Dose: 100 mls/hr Insulin Human Regular (Humulin R Med) 0 units SC ACHS [facility]; Protocol Last Admin: 08/18/18 12:05 Dose: 3 unit Isosorbide Mononitrate (Imdur Er) 30 mg PO TID [facility] Last Admin: 08/18/18 10:02 Dose: 30 mg Levalbuterol HCl (Xopenex) 0.63 mg IH TIDRESP [facility] Last Admin: 08/18/18 13:54 Dose: 0.63 mg Metoprolol Tartrate (Lopressor) 100 mg PO BID [facility] Last Admin: 08/18/18 09:59 Dose: 100 mg Ketorolac Tromethamine [Acular ] 5 Ml (Home) 0 ml OP DAILY [facility] Last Admin: 08/18/18 11:41 Dose: Not Given Prednisolone Acet 1% ([place] (Home)) 0 ml OP DAILY [facility] Last Admin: 08/18/18 11:39 Dose: Not Given Pantoprazole Sodium (Protonix Ec Tab) 40 mg PO 0600 [facility] Last Admin: 08/18/18 05:27 Dose: 40 mg Vitamin B Complex/Vit C/Folic Acid (Nephro-Arnoldo) 1 tab PO DAILY [facility] Last Admin: 08/18/18 10:02 Dose: 1 tab - Labs Labs: 08/18/18 07:30 08/18/18 07:30 PT 13.4 SECONDS (9.4-12.5) H 08/17/18 10:30 INR 1.19 08/17/18 10:30 APTT 37.7 Seconds (26.9-38.3) 08/17/18 10:30 - Constitutional Appears: Non-toxic, No Acute Distress - Head Exam Head Exam: ATRAUMATIC, NORMOCEPHALIC - Eye Exam Eye Exam: EOMI, Normal appearance, PERRL - ENT Exam ENT Exam: Mucous Membranes Moist - Neck Exam Neck Exam: Full ROM, Normal Inspection - Respiratory Exam Respiratory Exam: Rales (LLL rales unchanged from yesterday), Rhonchi (coarse breath sounds b/l improved from yesterday). absent: Accessory Muscle Use, Wheezes, Respiratory Distress - Cardiovascular Exam Cardiovascular Exam: REGULAR RHYTHM, RRR, +S1, +S2. absent: Gallop, Rubs, Murmur - GI/Abdominal Exam GI & Abdominal Exam: Soft. absent: Guarding, Tenderness - Exam Exam: Uretheral Discharge - Extremities Exam Extremities Exam: Normal Inspection. absent: Pedal Edema - Neurological Exam Neurological Exam: Alert, Awake, Oriented x3 - Psychiatric Exam Psychiatric exam: Normal Affect, Normal Mood - Skin Skin Exam: Dry, Intact, Warm Assessment and Plan - Assessment and Plan (Free Text) Assessment: 78 yo F with PMH of HTN, DM2, and CKD stage 4 presents with fever and cough. CXR is suggestive of LLL CAP. Plan: CAP Improved today but still febrile overnight with Tmax 100.7 Continue tylenol PRN fever/pain Continue doxycycline 100 mg IVPB BID and rocephin 1 g IVPB daily F/u blood cx results Continue robitussin PRN cough and duo-neb PRN for SOB Per patient request, patient's PMD notified that she is admitted inpatient with acute PNA Pulmonary Edema CXR identified b/l vascular congestion in addition to LLL infiltrate Likely 2/2 HF exacerbation from underlying PNA Continue strict I & O Per cardiology, no need for additional lasix at this time F/u additional cardiology recs Normocytic anemia Likely 2/2 anemia of chronic disease from CKD Per patient request, Dr. Blum made aware that patient is in hospital and that H/H is 7.9/24.4 this AM but no need for formal consult at this time Continue home iron dose Troponin elevation Troponin negative x 3 Likely 2/2 hx of CKD TTE ordered per cardiology recs F/u additional cardiology recs Hx CKD BUN/Cr increased from yesterday at 41/2.4 Continue to monitor Consider nephrology consult if worsening or need for nephrotoxic agents, otherwise avoid nephrotoxic agents Renal diet and medication doses Hx DM2 A1c 5.2 this visit Hold home PO anti-hyperglycemics ISS while admitted Hx HTN Hold chlorthalidone given hx of CKD Continue other home BP meds DVT/GI PPX: SC heparin, protonix Full Code HH, diabetic, renal diet Monitor on med/surg Patient seen, examined, and plan discussed with my attending Mary Alice RosarioO. IM Resident PGY-1 Pager: [phone] <Elvin Vail - Last Filed: 08/18/18 15:07> Objective - Vital Signs/Intake and Output Vital Signs (last 24 hours): Temp Pulse Resp BP Pulse Ox 100.7 F H 78 18 159/52 H 95 08/18/18 06:00 08/18/18 10:01 08/18/18 06:00 08/18/18 10:01 08/18/18 06:00 Intake and Output: 08/18/18 08/18/18 06:59 18:59 Intake Total 660 360 Balance 660 360 - Medications Medications: Current Medications Acetaminophen (Tylenol 325mg Tab) 650 mg PO Q6H PRN PRN Reason: Pain, moderate (4-7) Amlodipine Besylate (Norvasc) 5 mg PO DAILY [facility] Last Admin: 08/18/18 10:01 Dose: 5 mg Artificial Tears (Artificial Tears Opht Oint) 0 gm OU QID [facility] Dextrose (Dextrose 50% Inj) 0 ml IV STAT PRN; Protocol PRN Reason: Hypoglycemia Protocol Docusate Sodium (Colace) 100 mg PO TID [facility] Last Admin: 08/18/18 10:02 Dose: 100 mg Doxazosin Mesylate (Cardura) 2 mg PO DAILY [facility] Last Admin: 08/18/18 10:02 Dose: 2 mg Ferrous Sulfate (Feosol) 324 mg PO DAILY [facility] Last Admin: 08/18/18 10:02 Dose: 324 mg Gabapentin (Neurontin) 100 mg PO BID [facility]; Protocol Last Admin: 08/18/18 10:00 Dose: 100 mg Guaifenesin (Robitussin) 100 mg PO Q4H PRN PRN Reason: Cough Last Admin: 08/18/18 05:42 Dose: 100 mg Heparin Sodium (Porcine) (Heparin) 5,000 units SC Q8 [facility]; Protocol Last Admin: 08/18/18 05:27 Dose: 5,000 units Hydralazine HCl (Apresoline) 100 mg PO TID [facility] Last Admin: 08/18/18 10:01 Dose: 100 mg Dextrose (Dextrose 5% In Water 1000 Ml) 1,000 mls @ 0 mls/hr IV .Q0M PRN; Protocol PRN Reason: Hypoglycemia Protocol Ceftriaxone Sodium (Rocephin 1 Gram Ivpb) 1 gm in 100 mls @ 100 mls/hr IVPB DAILY [facility]; Protocol Last Admin: 08/18/18 11:44 Dose: 100 mls/hr Doxycycline Hyclate 100 mg/ (Sodium Chloride) 100 mls @ 100 mls/hr IVPB Q12 [facility]; Protocol Last Admin: 08/18/18 09:56 Dose: 100 mls/hr Insulin Human Regular (Humulin R Med) 0 units SC ACHS [facility]; Protocol Last Admin: 08/18/18 12:05 Dose: 3 unit Isosorbide Mononitrate (Imdur Er) 30 mg PO TID [facility] Last Admin: 08/18/18 10:02 Dose: 30 mg Levalbuterol HCl (Xopenex) 0.63 mg IH TIDRESP [facility] Last Admin: 08/18/18 13:54 Dose: 0.63 mg Metoprolol Tartrate (Lopressor) 100 mg PO BID [facility] Last Admin: 08/18/18 09:59 Dose: 100 mg Ketorolac Tromethamine [Acular ] 5 Ml (Home) 0 ml OP DAILY [facility] Last Admin: 08/18/18 11:41 Dose: Not Given Prednisolone Acet 1% ([place] (Home)) 0 ml OP DAILY [facility] Last Admin: 08/18/18 11:39 Dose: Not Given Pantoprazole Sodium (Protonix Ec Tab) 40 mg PO 0600 [facility] Last Admin: 08/18/18 05:27 Dose: 40 mg Vitamin B Complex/Vit C/Folic Acid (Nephro-Arnoldo) 1 tab PO DAILY [facility] Last Admin: 08/18/18 10:02 Dose: 1 tab - Labs Labs: 08/18/18 07:30 08/18/18 07:30 PT 13.4 SECONDS (9.4-12.5) H 08/17/18 10:30 INR 1.19 08/17/18 10:30 APTT 37.7 Seconds (26.9-38.3) 08/17/18 10:30 Attending/Attestation - Attestation I have personally seen and examined this patient.: Yes I have fully participated in the care of the patient.: Yes I have reviewed all pertinent clinical information, including history, physical exam and plan: Yes Notes (Text): 08/18/18 15:04 78 year old female with past medical history of hypertension, diabetes, and CKD who presented with complaint of fever, cough and generalized weakness. She was found to have multifocal infiltrates with pulmonary congestion on CXR with elevated probnp at 6750. Continue with iv antibiotics. Will follow up on cultures. She received iv lasix yesterday. Echocardiogram reviewed showing preserved EF; diastolic dysfunction. Cardiology is following. Continue with home medications for hypertension except for cholthalidone on hold for now due to CKD. Continue to monitor anemia, likely secondary to anemia of chronic renal disease. Daughter is at bedside and questions were answered. Elvin Vail MD Hospitalist.
[2018-08-18] MEDS: Mineral Oil/Petrolatum Opht Oint(3.5 gm) OU SCH (22:00)
[2018-08-19] MEDS: Pantoprazole 40 mg EC Tab PO SCH (05:48)
[2018-08-19] MEDS: Levalbuterol 0.63 MG/3 ML Inhal Soln UD IH SCH ×3 (07:52→20:44)
[2018-08-19 08:06] LABS: BASO # 0.01 K/mm3 (0.0-2.0); BASO % 0.2 % (0.0-3.0); EOS % 0.7 % (1.5-5.0); HEMOGLOBIN 7.7 g/dL (12.0-16.0); LYMPH # 1.4 (1.2-3.4); LYMPH % 22.6 % (22.0-35.0); MEAN CELL VOLUME 89.7 fl (80.0-105.0); MEAN CORPUSCULAR HEMOGLOBIN 29.3 pg (25.0-35.0); MEAN CORPUSCULAR HGB CONC 32.6 g/dl (31.0-37.0); MEAN PLATELET VOLUME 10.4 fl (7.0-11.0); MONO # 0.3 (0.1-0.6); MONO % 5.2 % (1.0-6.0); RBC 2.63 10^6/uL (3.5-6.1)
[2018-08-19 08:21] LABS: ALB/GLOB RATIO 1.1 (1.1-1.8); CALCIUM 7.7 mg/dL (8.4-10.5)
[2018-08-19] MEDS: Insulin Reg-MEDIUM-Coverage SC SCH ×4 (08:28→22:18)
[2018-08-19] MEDS: Multivitamin Vitamin B Complex (Nephro-Vite) Tab PO SCH (09:42)
[2018-08-19] MEDS: cefTRIAXone 1 gm 1 GM/100 ML BAG IVPB SCH (09:46)
[2018-08-19] MEDS: Mineral Oil/Petrolatum Opht Oint(3.5 gm) OU SCH ×4 (09:46→22:18)
[2018-08-19] MEDS ORDERED: Darbepoetin Alfa 60 mcg/ml Inj SC SCH (12:30)
--- NOTE | 2018-08-19 13:48 | PN ---
DATE: 08/19/2018 LOCATION: Room 576, bed 1. REASON FOR CONSULTATION: Fever, cough, generalized weakness, hypertension, diabetes, chronic kidney disease, had hemodialysis in the past, no hemodialysis now. The patient still has cough. Denies chest pain. Denies palpitation. The patient found to have pneumonia. PHYSICAL EXAMINATION VITAL SIGNS: The patient's blood pressure is 164/59, respirations 18, pulse 81, temperature 98.8. HEENT: Head is normocephalic. Eyes, pupils normal. Conjunctivae slightly pale. NECK: JVP low. Carotids equal. THORAX: AP diameter normal. LUNGS: No significant wheeze. CARDIOVASCULAR: S1, S2. ABDOMEN: Soft, nontender. No organomegaly. EXTREMITIES: No clubbing. No cyanosis. LABORATORY DATA: WBC 6.0, hemoglobin 7.7, hematocrit 23.6, platelets 298. Sodium 138, potassium 3.6, BUN 45, creatinine 2.7. DIAGNOSES: Pneumonia, anemia, renal dysfunction, hypertension, diabetes, chronic kidney disease, had some dialysis in the past, not now on dialysis, right-sided lumpectomy, hysterectomy, cataract surgery. Echo 01/27/2017, showed mild concentric left ventricular hypertrophy, grade 2 pseudonormal filling dynamics. Right ventricular systolic function normal, moderately dilated atrium with mild mitral regurgitation, moderate tricuspid regurgitation, right ventricular systolic pressure of 55 mmHg suggestive of moderate pulmonary hypertension. The patient's echo was repeated on 08/18/2018, which showed moderate concentric left ventricular hypertrophy, left ventricular ejection fraction 65%, aortic sclerosis versus mild aortic stenosis, mild to moderate mitral regurgitation, moderate tricuspid regurgitation, right ventricular systolic pressure of 51 mmHg suggestive of moderate pulmonary hypertension, trace pericardial effusion, no vegetation or thrombus seen. PLAN: Discussed with the patient and family by Dr. Galarza, and right now, the patient and daughter who is a nurse decided that we should not do stress test at present moment treat her medically with present condition of pneumonia and present therapy. The patient is on hydralazine 100 mg p.o. t.i.d., Cardura 2 mg daily, doxycycline 100 mg IV every 12 hours, ferrous sulfate 324 p.o. daily, heparin 5000 units subcutaneously every 8 hours, isosorbide mononitrate 30 p.o. t.i.d., metoprolol 100 mg b.i.d., Neurontin 100 mg b.i.d., amlodipine 5 mg daily, Protonix 40 p.o. daily, ceftriaxone 1 g IV daily. We will continue present therapy and we will follow with you. Carla Salamanca MD
--- NOTE | 2018-08-19 15:02 | CP.PCM.PN ---
<Brett Johnson - Last Filed: 08/19/18 17:27> Subjective - Date & Time of Evaluation Date of Evaluation: 08/19/18 Time of Evaluation: 07:50 - Subjective Subjective: Brett Johnson DO, PGY-1 Hospitalist Progress Note for Dr. Vail Patient was seen and examined at bedside this AM. She reports feeling better this AM and states her cough is improving but still present. She had fevers again last night with Tmax of 101.3 yesterday evening but is afebrile this AM. She states she has been able to be OOB to chair without difficulty. Objective - Vital Signs/Intake and Output Vital Signs (last 24 hours): Temp Pulse Resp BP Pulse Ox 98.8 F 81 18 144/47 L 95 08/19/18 06:00 08/19/18 09:44 08/19/18 06:00 08/19/18 14:35 08/19/18 06:00 Intake and Output: 08/19/18 08/19/18 06:59 18:59 Intake Total 660 Output Total 300 Balance 360 - Medications Medications: Current Medications Acetaminophen (Tylenol 325mg Tab) 650 mg PO Q6H PRN PRN Reason: Pain, moderate (4-7) Last Admin: 08/18/18 17:22 Dose: 650 mg Amlodipine Besylate (Norvasc) 5 mg PO DAILY [facility] Last Admin: 08/19/18 09:44 Dose: 5 mg Artificial Tears (Artificial Tears Opht Oint) 0 gm OU QID [facility] Last Admin: 08/19/18 13:29 Dose: 1 applic Darbepoetin Nabil (Aranesp) 60 mcg SC QWK [facility] Last Admin: 08/19/18 14:29 Dose: 60 mcg Dextrose (Dextrose 50% Inj) 0 ml IV STAT PRN; Protocol PRN Reason: Hypoglycemia Protocol Docusate Sodium (Colace) 100 mg PO TID [facility] Last Admin: 08/19/18 13:25 Dose: 100 mg Ferrous Sulfate (Feosol) 324 mg PO TID [facility] Last Admin: 08/19/18 13:25 Dose: 324 mg Gabapentin (Neurontin) 100 mg PO BID [facility]; Protocol Last Admin: 08/19/18 09:43 Dose: 100 mg Glimepiride (Amaryl) 2 mg PO DAILY [facility] Last Admin: 08/19/18 13:26 Dose: 2 mg Guaifenesin (Robitussin) 100 mg PO Q4H PRN PRN Reason: Cough Last Admin: 08/18/18 05:42 Dose: 100 mg Heparin Sodium (Porcine) (Heparin) 5,000 units SC Q8 [facility]; Protocol Last Admin: 08/19/18 14:29 Dose: 5,000 units Hydralazine HCl (Apresoline) 100 mg PO TID [facility] Last Admin: 08/19/18 14:35 Dose: Not Given Dextrose (Dextrose 5% In Water 1000 Ml) 1,000 mls @ 0 mls/hr IV .Q0M PRN; Protocol PRN Reason: Hypoglycemia Protocol Ceftriaxone Sodium (Rocephin 1 Gram Ivpb) 1 gm in 100 mls @ 100 mls/hr IVPB DA JUAN [facility]; Protocol Stop: 08/22/18 10:59 Last Admin: 08/19/18 09:46 Dose: 100 mls/hr Doxycycline Hyclate 100 mg/ (Sodium Chloride) 100 mls @ 100 mls/hr IVPB Q12 [facility]; Protocol Last Admin: 08/19/18 11:01 Dose: 100 mls/hr Insulin Human Regular (Humulin R Med) 0 units SC ACHS [facility]; Protocol Last Admin: 08/19/18 13:07 Dose: Not Given Isosorbide Mononitrate (Imdur Er) 30 mg PO TID [facility] Last Admin: 08/19/18 13:25 Dose: 30 mg Levalbuterol HCl (Xopenex) 0.63 mg IH TIDRESP [facility] Last Admin: 08/19/18 13:41 Dose: 0.63 mg Metoprolol Tartrate (Lopressor) 100 mg PO BID [facility] Last Admin: 08/19/18 09:42 Dose: 100 mg Ketorolac Tromethamine [Acular ] 5 Ml (Home) 0 ml OP DAILY [facility] Last Admin: 08/18/18 11:41 Dose: Not Given Prednisolone Acet 1% ([place] (Home)) 0 ml OP DAILY [facility] Last Admin: 08/18/18 11:39 Dose: Not Given Pantoprazole Sodium (Protonix Ec Tab) 40 mg PO 0600 [facility] Last Admin: 08/19/18 05:48 Dose: 40 mg Vitamin B Complex/Vit C/Folic Acid (Nephro-Arnoldo) 1 tab PO DAILY [facility] Last Admin: 08/19/18 09:42 Dose: 1 tab - Labs Labs: 08/19/18 07:50 08/19/18 07:50 PT 13.4 SECONDS (9.4-12.5) H 08/17/18 10:30 INR 1.19 08/17/18 10:30 APTT 37.7 Seconds (26.9-38.3) 08/17/18 10:30 - Constitutional Appears: Non-toxic, No Acute Distress - Head Exam Head Exam: ATRAUMATIC, NORMOCEPHALIC - Eye Exam Eye Exam: EOMI, Normal appearance, PERRL - ENT Exam ENT Exam: Mucous Membranes Moist - Neck Exam Neck Exam: Full ROM, Normal Inspection - Respiratory Exam Respiratory Exam: Rales (LLL crackles unchanged from prior exams), Rhonchi (diffuse rhonchi b/l improved from prior exams). absent: Wheezes - Cardiovascular Exam Cardiovascular Exam: REGULAR RHYTHM, RRR, +S1, +S2. absent: Gallop, Rubs, Murmur - GI/Abdominal Exam GI & Abdominal Exam: Soft, Normal Bowel Sounds. absent: Tenderness - Extremities Exam Extremities Exam: Normal Inspection. absent: Pedal Edema - Back Exam Back Exam: NORMAL INSPECTION - Neurological Exam Neurological Exam: Alert, Awake, Oriented x3 - Psychiatric Exam Psychiatric exam: Normal Affect, Normal Mood - Skin Skin Exam: Dry, Intact, Warm Assessment and Plan - Assessment and Plan (Free Text) Assessment: 78 yo F with PMH of HTN, DM2, and CKD stage 4 presents with fever and cough. CXR is suggestive of LLL CAP. Since admission, she has also had worsening of chronic anemia and renal function. Plan: CAP Tmax of 101.3 yesterday evening, improved s/p tylenol Continue doxycycline 100 mg IVPB BID and rocephin 1 g IVPB daily Blood cx no growth at 48 hours Continue robitussin PRN cough and duo-neb PRN for SOB Pulmonary Edema CXR identified b/l vascular congestion in addition to LLL infiltrate Suspect likely 2/2 edema from infection vs decreased renal function Continue strict I & O Per cardiology, can give xopenex PRN for SOB, but no additional lasix or stress test needed at this time F/u additional cardiology recs Normocytic anemia Suspect 2/2 anemia of chronic disease from CKD H/H has been stable but slowly decreasing to 7.7/23.6 this AM Continue home iron dose Consult placed for Dr. Blum for worsening anemia Per nephrology, may start weekly aranesp Troponin elevation Troponin negative x 3 Likely 2/2 hx of CKD F/u additional cardiology recs Hx CKD BUN/Cr increased from yesterday at 45/2.7 Nephrology states no need for acute renal replacement at this time Will start small amount of NS at 75 cc/hr F/u additional nephrology recs Renal diet and medication doses, Hx DM2 A1c 5.2 this visit May resume PO anti-hyperglycemics ISS with ACHS fingerstick glucose while admitted Hx HTN Hold chlorthalidone given hx of CKD Continue other home BP meds F/u additional nephrology recs DVT/GI PPX: SC heparin, protonix Full Code HH, diabetic, renal diet Monitor on med/surg Patient seen, examined, and plan discussed with my attending Dr. Yared Johnson, Mary AliceO. IM Resident PGY-1 Pager: [phone] <Elvin Vail - Last Filed: 08/19/18 19:22> Objective - Vital Signs/Intake and Output Vital Signs (last 24 hours): Temp Pulse Resp BP Pulse Ox 99.3 F 78 20 137/46 L 91 L 08/19/18 14:00 08/19/18 18:08 08/19/18 14:00 08/19/18 18:08 08/19/18 14:00 - Medications Medications: Current Medications Acetaminophen (Tylenol 325mg Tab) 650 mg PO Q6H PRN PRN Reason: Pain, moderate (4-7) Last Admin: 08/18/18 17:22 Dose: 650 mg Amlodipine Besylate (Norvasc) 5 mg PO DAILY [facility] Last Admin: 08/19/18 09:44 Dose: 5 mg Artificial Tears (Artificial Tears Opht Oint) 0 gm OU QID [facility] Last Admin: 08/19/18 17:56 Dose: 1 applic Darbepoetin Nabil (Aranesp) 60 mcg SC QWK [facility] Last Admin: 08/19/18 14:29 Dose: 60 mcg Dextrose (Dextrose 50% Inj) 0 ml IV STAT PRN; Protocol PRN Reason: Hypoglycemia Protocol Docusate Sodium (Colace) 100 mg PO TID [facility] Last Admin: 08/19/18 17:58 Dose: 100 mg Ferrous Sulfate (Feosol) 324 mg PO TID [facility] Last Admin: 08/19/18 13:25 Dose: 324 mg Gabapentin (Neurontin) 100 mg PO BID [facility]; Protocol Last Admin: 08/19/18 17:59 Dose: 100 mg Glimepiride (Amaryl) 2 mg PO DAILY [facility] Last Admin: 08/19/18 13:26 Dose: 2 mg Guaifenesin (Robitussin) 100 mg PO Q4H PRN PRN Reason: Cough Last Admin: 08/18/18 05:42 Dose: 100 mg Heparin Sodium (Porcine) (Heparin) 5,000 units SC Q8 [facility]; Protocol Last Admin: 08/19/18 14:29 Dose: 5,000 units Hydralazine HCl (Apresoline) 100 mg PO TID [facility] Last Admin: 08/19/18 17:54 Dose: Not Given Dextrose (Dextrose 5% In Water 1000 Ml) 1,000 mls @ 0 mls/hr IV .Q0M PRN; Protocol PRN Reason: Hypoglycemia Protocol Ceftriaxone Sodium (Rocephin 1 Gram Ivpb) 1 gm in 100 mls @ 100 mls/hr IVPB DAILY [facility]; Protocol Stop: 08/22/18 10:59 Last Admin: 08/19/18 09:46 Dose: 100 mls/hr Doxycycline Hyclate 100 mg/ (Sodium Chloride) 100 mls @ 100 mls/hr IVPB Q12 [facility]; Protocol Last Admin: 08/19/18 11:01 Dose: 100 mls/hr Sodium Chloride (Sodium Chloride 0.9%) 1,000 mls @ 75 mls/hr IV .[id number] [facility] Last Admin: 08/19/18 18:02 Dose: 75 mls/hr Insulin Human Regular (Humulin R Med) 0 units SC ACHS [facility]; Protocol Last Admin: 08/19/18 17:00 Dose: Not Given Isosorbide Mononitrate (Imdur Er) 30 mg PO TID [facility] Last Admin: 08/19/18 13:25 Dose: 30 mg Levalbuterol HCl (Xopenex) 0.63 mg IH TIDRESP [facility] Last Admin: 08/19/18 13:41 Dose: 0.63 mg Metoprolol Tartrate (Lopressor) 100 mg PO BID [facility] Last Admin: 08/19/18 18:08 Dose: 50 mg Ketorolac Tromethamine [Acular ] 5 Ml (Home) 0 ml OP DAILY [facility] Last Admin: 08/18/18 11:41 Dose: Not Given Prednisolone Acet 1% ([place] (Home)) 0 ml OP DAILY [facility] Last Admin: 08/19/18 18:00 Dose: Not Given Pantoprazole Sodium (Protonix Ec Tab) 40 mg PO 0600 [facility] Last Admin: 08/19/18 05:48 Dose: 40 mg Vitamin B Complex/Vit C/Folic Acid (Nephro-Arnoldo) 1 tab PO DAILY [facility] Last Admin: 08/19/18 09:42 Dose: 1 tab - Labs Labs: 08/19/18 07:50 08/19/18 07:50 PT 13.4 SECONDS (9.4-12.5) H 08/17/18 10:30 INR 1.19 08/17/18 10:30 APTT 37.7 Seconds (26.9-38.3) 08/17/18 10:30 Attending/Attestation - Attestation I have personally seen and examined this patient.: Yes I have fully participated in the care of the patient.: Yes I have reviewed all pertinent clinical information, including history, physical exam and plan: Yes Notes (Text): 08/19/18 19:20 78 year old female with past medical history of hypertension, diabetes, and CKD who presented with complaint of fever, cough and generalized weakness. She was found to have multifocal infiltrates with pulmonary congestion on CXR with elevated probnp at 6750. Continue with iv antibiotics. Cultures are negative to date. Echocardiogram reviewed showing preserved EF; diastolic dysfunction. Cardiology is following. Continue with home medications for hypertension except for cholthalidone on hold for now due to CKD. Nephrology evaluation is requested for acute on chronic renal disease; recommended gentle fluids. Continue to monitor anemia, likely secondary to anemia of chronic renal disease. Elvin Vail MD Hospitalist.
--- NOTE | 2018-08-19 15:41 | CP.PCM.CON ---
History of Present Illness - History of Present Illness History of Present Illness: Nephrology Consultation Note: Assessment: Stable Acute Kidney Injury (N17.9) likely due to sepsis, Pneumonia Diabetic chronic Kidney Disease (E11.22) Hypertensive Chronic Kidney Disease (I12.9) Chronic Kidney Disease (N18.4) Stage 4 with ? mg proteinuria (R80.9) likely due to DM/HTN Anemia (D64.9) sepsis with pneumonia Plan No acute need for renal replacement therapy at this time. Hypertension control with meds as ordered. Maintain hemodynamics stable. Avoid hypotension. Patient not on acei/ARB held due to recent ALO. Monitor Input/Output, daily weights and renal function with basic metabolic panel started iron, MVI and weekly aransep. PRBC as needed consider heme evaluation suggest IVF as NS @ 50-75 ml/hr. d/c cardura Check urine spot protein/creatinine, albumin/creatinine ratio Anemia work up with serum protein electrophoresis with immunofixation, serum free light chain assay ([place]/Lambda) Check for 25-OH vitamin D, iPTH Dose meds/antibiotics for reduced GFR. Avoid fleets enema/magnesium based laxatives. Avoid nephrotoxins/NSAIDs/ iodinated contrast (unless needed emergently) Glycemic control Further work up/management as per primary team Thanks for allowing me to participate in care of your patient. Will follow patient with you. Please call if any Qs. had d/w team and family bedside Dr Estuardo Styles Office: [phone] Chief Complaint; SOB Reason for consult: Acute Kidney Injury on CKD HPI: Pt is a 78 F with hx of diabetes Mellitus (1994) with retinopathy s/p laser surgery, hypertension (>10 years) CKD 4 with baseline cr ~2 (f/up with Dr Savage), ALO in past requiring temp dialysis (2-3 sessions) presented with complaints of SOB cough and fever admitted for pneumonia. renal consult for ALO on CKD 3. cough better. temp coming down. decreased oral intake and appetite for last few days. no urine complaints Denies OTC/herbal meds or NSAIDs No recent iodinated contrast exposure. No obvious episodes of low BP. ROS: daughter bedside Cardiovascular: No chest pain. Pulmonary: denies shortness of breath Gastrointestinal: denies abdominal pain No nausea. No vomiting. Genitourinary: No pain while urinating. Denies blood in urine. All other negative except as mentioned in HPI Physical Examination: General Appearance: Comfortable, in no acute respiratory distress, co-operative . Vitals reviewed and noted as below Head; Atraumatic, normocephalic ENT: no ulcers no thrush. Tongue is midline. Oropharynx: no rash or ulcers. EYES: Pupils are equal, round and reactive to light accommodation. Eye muscles and extraocular movement intact. Sclera is anicteric. Neck; supple no lymphadenopathy, no thyromegaly or bruit Lungs: Normal respiratory rate/effort. Breath sounds bilateral rales/ crackles Heart: Normal rate. s1s2 normal. No rub or gallop. Extremities: no edema. No varicose veins Neurological: Patient is alert, awake and oriented to person, place and time. No focal deficit. Strength bilateral appropriate and equal Skin: Warm and dry. Normal turgor. No rash. Palpitation: Normal elasticity for age Abdomen: Abdomen is soft. Bowel sounds +. There is no abdominal tenderness, no guarding/rigidity no organomegaly. ? ascites. Psych: limited insight and normal affect/mood MSK: no joint tenderness or swelling. Digits and nails normal, no deformity : kidney or bladder not palpable Labs/imaging reviewed. Past medical history, past surgical history, family history, social history, allergy reviewed and noted as below Family hx: no hx of CKD. Rest non-contributory Past Patient History - Infectious Disease Hx of Infectious Diseases: None - Past Social History Smoking Status: Never Smoked - CARDIAC Hx Cardiac Disorders: Yes Hx Congestive Heart Failure: Yes Hx Hypertension: Yes - PULMONARY Hx Respiratory Disorders: No - NEUROLOGICAL Hx Neurological Disorder: Yes Other/Comment: neuropathy pins and needles, throbbing pain to legs and feet - HEENT Hx HEENT Problems: Yes Hx Cataracts: Yes (b/l sx) - RENAL Hx Chronic Kidney Disease: Yes () - ENDOCRINE/METABOLIC Hx Endocrine Disorders: Yes Hx Diabetes Mellitus Type 2: Yes Hx Hyperthyroidism: Yes - HEMATOLOGICAL/ONCOLOGICAL Hx Blood Disorders: Yes Hx Anemia: Yes (iron deficiency) Other/Comment: pt takes iron po and juest started procrit for iron deficiency anemia - INTEGUMENTARY Hx Dermatological Problems: Yes Other/Comment: thick toenails multiple skin discolorations ble, multiple small light skin pigmentation ti arms and legs, dark brown areas of skin rle, dark raised scab to rle, dark skin spots to face - MUSCULOSKELETAL/RHEUMATOLOGICAL Hx Musculoskeletal Disorders: Yes Hx Falls: No Hx Unsteady Gait: Yes - GASTROINTESTINAL Hx Gastrointestinal Disorders: Yes (chronic constipation takes colace) - GENITOURINARY/GYNECOLOGICAL Hx Genitourinary Disorders: Yes (fibroids) - PSYCHIATRIC Hx Psychophysiologic Disorder: No Hx Substance Use: No - SURGICAL HISTORY Hx Hysterectomy: Yes (due to fibroids) Other/Comment: Right Breast Lumpectomy benign Meds Allergies/Adverse Reactions: Allergies Allergy/AdvReac Type Severity Reaction Status Date / Time No Known Allergies Allergy Verified 08/17/18 10:06 - Medications Medications: Current Medications Acetaminophen (Tylenol 325mg Tab) 650 mg PO Q6H PRN PRN Reason: Pain, moderate (4-7) Last Admin: 08/18/18 17:22 Dose: 650 mg Amlodipine Besylate (Norvasc) 5 mg PO DAILY [facility] Last Admin: 08/19/18 09:44 Dose: 5 mg Artificial Tears (Artificial Tears Opht Oint) 0 gm OU QID [facility] Last Admin: 08/19/18 13:29 Dose: 1 applic Darbepoetin Nabil (Aranesp) 60 mcg SC QWK [facility] Last Admin: 08/19/18 14:29 Dose: 60 mcg Dextrose (Dextrose 50% Inj) 0 ml IV STAT PRN; Protocol PRN Reason: Hypoglycemia Protocol Docusate Sodium (Colace) 100 mg PO TID [facility] Last Admin: 08/19/18 13:25 Dose: 100 mg Ferrous Sulfate (Feosol) 324 mg PO TID [facility] Last Admin: 08/19/18 13:25 Dose: 324 mg Gabapentin (Neurontin) 100 mg PO BID [facility]; Protocol Last Admin: 08/19/18 09:43 Dose: 100 mg Glimepiride (Amaryl) 2 mg PO DAILY [facility] Last Admin: 08/19/18 13:26 Dose: 2 mg Guaifenesin (Robitussin) 100 mg PO Q4H PRN PRN Reason: Cough Last Admin: 08/18/18 05:42 Dose: 100 mg Heparin Sodium (Porcine) (Heparin) 5,000 units SC Q8 [facility]; Protocol Last Admin: 08/19/18 14:29 Dose: 5,000 units Hydralazine HCl (Apresoline) 100 mg PO TID [facility] Last Admin: 08/19/18 14:35 Dose: Not Given Dextrose (Dextrose 5% In Water 1000 Ml) 1,000 mls @ 0 mls/hr IV .Q0M PRN; Protocol PRN Reason: Hypoglycemia Protocol Ceftriaxone Sodium (Rocephin 1 Gram Ivpb) 1 gm in 100 mls @ 100 mls/hr IVPB DAILY [facility]; Protocol Stop: 08/22/18 10:59 Last Admin: 08/19/18 09:46 Dose: 100 mls/hr Doxycycline Hyclate 100 mg/ (Sodium Chloride) 100 mls @ 100 mls/hr IVPB Q12 [facility]; Protocol Last Admin: 08/19/18 11:01 Dose: 100 mls/hr Insulin Human Regular (Humulin R Med) 0 units SC ACHS [facility]; Protocol Last Admin: 08/19/18 13:07 Dose: Not Given Isosorbide Mononitrate (Imdur Er) 30 mg PO TID [facility] Last Admin: 08/19/18 13:25 Dose: 30 mg Levalbuterol HCl (Xopenex) 0.63 mg IH TIDRESP [facility] Last Admin: 08/19/18 13:41 Dose: 0.63 mg Metoprolol Tartrate (Lopressor) 100 mg PO BID [facility] Last Admin: 08/19/18 09:42 Dose: 100 mg Ketorolac Tromethamine [Acular ] 5 Ml (Home) 0 ml OP DAILY [facility] Last Admin: 08/18/18 11:41 Dose: Not Given Prednisolone Acet 1% ([place] (Home)) 0 ml OP DAILY [facility] Last Admin: 08/18/18 11:39 Dose: Not Given Pantoprazole Sodium (Protonix Ec Tab) 40 mg PO 0600 [facility] Last Admin: 08/19/18 05:48 Dose: 40 mg Vitamin B Complex/Vit C/Folic Acid (Nephro-Arnoldo) 1 tab PO DAILY [facility] Last Admin: 08/19/18 09:42 Dose: 1 tab Results - Vital Signs Recent Vital Signs: Last Vital Signs Temp 99.3 F 08/19/18 14:00 Pulse 79 08/19/18 14:00 Resp 20 08/19/18 14:00 BP 144/47 L 08/19/18 14:35 Pulse Ox 91 L 08/19/18 14:00 - Labs Result Diagrams: 08/19/18 07:50 08/19/18 07:50 Labs: Laboratory Results - last 24 hr 08/18/18 08/18/18 08/19/18 16:25 21:13 05:59 WBC RBC Hgb Hct MCV MCH MCHC RDW Plt Count MPV Neut % (Auto) Lymph % (Auto) [place] % (Auto) Eos % (Auto) Baso % (Auto) Lymph # (Auto) [place] # (Auto) Eos # (Auto) Baso # (Auto) Absolute Neuts (auto) Sodium Potassium Chloride Carbon Dioxide Anion Gap BUN Creatinine Est GFR ( Amer) Est GFR (Non-Af Amer) POC Glucose (mg/dL) 79 134 H 86 Random Glucose Calcium Total Bilirubin AST ALT Alkaline Phosphatase Total Protein Albumin Globulin Albumin/Globulin Ratio 08/19/18 08/19/18 08/19/18 07:50 07:50 11:20 WBC 6.0 RBC 2.63 L Hgb 7.7 L Hct 23.6 L MCV 89.7 MCH 29.3 MCHC 32.6 RDW 15.0 H Plt Count 298 MPV 10.4 Neut % (Auto) 71.3 H Lymph % (Auto) 22.6 [place] % (Auto) 5.2 Eos % (Auto) 0.7 L Baso % (Auto) 0.2 Lymph # (Auto) 1.4 [place] # (Auto) 0.3 Eos # (Auto) 0.0 Baso # (Auto) 0.01 Absolute Neuts (auto) 4.26 Sodium 138 Potassium 3.6 Chloride 107 Carbon Dioxide 22 Anion Gap 13 BUN 45 H Creatinine 2.7 H Est GFR ( Amer) 21 Est GFR (Non-Af Amer) 17 POC Glucose (mg/dL) 191 H Random Glucose 77 Calcium 7.7 L Total Bilirubin 0.3 AST 32 ALT 27 Alkaline Phosphatase 74 Total Protein 5.8 Albumin 3.0 Globulin 2.7 Albumin/Globulin Ratio 1.1
[2018-08-19] MEDS: PREDNISOLONE ACETATE 1% OP SCH (18:00)
[2018-08-19] MEDS: Sodium Chloride 0.9% 1,000 ML IV SCH (18:02)
--- NOTE | 2018-08-19 21:27 | CP.PCM.CON ---
History of Present Illness - History of Present Illness History of Present Illness: 78 year old female with a history of HTN, DM, CKD, admitted with pneumonia, with anemia. The patient underwent an anemia w/u in my office which was consistent with a hypoproliferative erythroid response felt to be from CKD. She was r ecently started on Procrit. She does note to fatigue. She denies abnormal bleeding and bruising. Past medical history: HTN, DM, CKD, anemia Past surgical history: Denies Family history: Denies hematologic and oncologic problems Social history: Denies tobacco, alcohol, and illicit drug use. Allergies: NKA Review of systems: All remaining review of systems including HEENT, cardiovascu lar, respiratory, gastrointestinal, genitourinary, musculoskeletal, dermatologic, neurologic, and psychiatric are negative unless mentioned in the HPI. Past Patient History - Infectious Disease Hx of Infectious Diseases: None - Past Social History Smoking Status: Never Smoked - CARDIAC Hx Cardiac Disorders: Yes Hx Congestive Heart Failure: Yes Hx Hypertension: Yes - PULMONARY Hx Respiratory Disorders: No - NEUROLOGICAL Hx Neurological Disorder: Yes Other/Comment: neuropathy pins and needles, throbbing pain to legs and feet - HEENT Hx HEENT Problems: Yes Hx Cataracts: Yes (b/l sx) - RENAL Hx Chronic Kidney Disease: Yes ( 4) - ENDOCRINE/METABOLIC Hx Endocrine Disorders: Yes Hx Diabetes Mellitus Type 2: Yes Hx Hyperthyroidism: Yes - HEMATOLOGICAL/ONCOLOGICAL Hx Blood Disorders: Yes Hx Anemia: Yes (iron deficiency) Other/Comment: pt takes iron po and juest started procrit for iron deficiency anemia - INTEGUMENTARY Hx Dermatological Problems: Yes Other/Comment: thick toenails multiple skin discolorations ble, multiple small light skin pigmentation ti arms and legs, dark brown areas of skin rle, dark raised scab to rle, dark skin spots to face - MUSCULOSKELETAL/RHEUMATOLOGICAL Hx Musculoskeletal Disorders: Yes Hx Falls: No Hx Unsteady Gait: Yes - GASTROINTESTINAL Hx Gastrointestinal Disorders: Yes (chronic constipation takes colace) - GENITOURINARY/GYNECOLOGICAL Hx Genitourinary Disorders: Yes (fibroids) - PSYCHIATRIC Hx Psychophysiologic Disorder: No Hx Substance Use: No - SURGICAL HISTORY Hx Hysterectomy: Yes (due to fibroids) Other/Comment: Right Breast Lumpectomy benign Meds Allergies/Adverse Reactions: Allergies Allergy/AdvReac Type Severity Reaction Status Date / Time No Known Allergies Allergy Verified 08/17/18 10:06 - Medications Medications: Current Medications Acetaminophen (Tylenol 325mg Tab) 650 mg PO Q6H PRN PRN Reason: Pain, moderate (4-7) Last Admin: 08/18/18 17:22 Dose: 650 mg Amlodipine Besylate (Norvasc) 5 mg PO DAILY [facility] Last Admin: 08/19/18 09:44 Dose: 5 mg Artificial Tears (Artificial Tears Opht Oint) 0 gm OU QID [facility] Last Admin: 08/19/18 17:56 Dose: 1 applic Darbepoetin Nabil (Aranesp) 60 mcg SC QWK [facility] Last Admin: 08/19/18 14:29 Dose: 60 mcg Dextrose (Dextrose 50% Inj) 0 ml IV STAT PRN; Protocol PRN Reason: Hypoglycemia Protocol Docusate Sodium (Colace) 100 mg PO TID [facility] Last Admin: 08/19/18 17:58 Dose: 100 mg Ferrous Sulfate (Feosol) 324 mg PO TID [facility] Last Admin: 08/19/18 13:25 Dose: 324 mg Gabapentin (Neurontin) 100 mg PO BID [facility]; Protocol Last Admin: 08/19/18 17:59 Dose: 100 mg Glimepiride (Amaryl) 2 mg PO DAILY [facility] Last Admin: 08/19/18 13:26 Dose: 2 mg Guaifenesin (Robitussin) 100 mg PO Q4H PRN PRN Reason: Cough Last Admin: 08/18/18 05:42 Dose: 100 mg Heparin Sodium (Porcine) (Heparin) 5,000 units SC Q8 [facility]; Protocol Last Admin: 08/19/18 14:29 Dose: 5,000 units Hydralazine HCl (Apresoline) 100 mg PO TID [facility] Last Admin: 08/19/18 17:54 Dose: Not Given Dextrose (Dextrose 5% In Water 1000 Ml) 1,000 mls @ 0 mls/hr IV .Q0M PRN; Protocol PRN Reason: Hypoglycemia Protocol Ceftriaxone Sodium (Rocephin 1 Gram Ivpb) 1 gm in 100 mls @ 100 mls/hr IVPB DAILY [facility]; Protocol Stop: 08/22/18 10:59 Last Admin: 08/19/18 09:46 Dose: 100 mls/hr Doxycycline Hyclate 100 mg/ (Sodium Chloride) 100 mls @ 100 mls/hr IVPB Q12 [facility]; Protocol Last Admin: 08/19/18 11:01 Dose: 100 mls/hr Sodium Chloride (Sodium Chloride 0.9%) 1,000 mls @ 75 mls/hr IV .[id number] [facility] Last Admin: 08/19/18 18:02 Dose: 75 mls/hr Insulin Human Regular (Humulin R Med) 0 units SC ACHS [facility]; Protocol Last Admin: 08/19/18 17:00 Dose: Not Given Isosorbide Mononitrate (Imdur Er) 30 mg PO TID [facility] Last Admin: 08/19/18 13:25 Dose: 30 mg Levalbuterol HCl (Xopenex) 0.63 mg IH TIDRESP [facility] Last Admin: 08/19/18 13:41 Dose: 0.63 mg Metoprolol Tartrate (Lopressor) 100 mg PO BID [facility] Last Admin: 08/19/18 18:08 Dose: 50 mg Ketorolac Tromethamine [Acular ] 5 Ml (Home) 0 ml OP DAILY [facility] Last Admin: 08/18/18 11:41 Dose: Not Given Prednisolone Acet 1% ([place] (Home)) 0 ml OP DAILY [facility] Last Admin: 08/19/18 18:00 Dose: Not Given Pantoprazole Sodium (Protonix Ec Tab) 40 mg PO 0600 [facility] Last Admin: 08/19/18 05:48 Dose: 40 mg Vitamin B Complex/Vit C/Folic Acid (Nephro-Arnoldo) 1 tab PO DAILY [facility] Last Admin: 08/19/18 09:42 Dose: 1 tab Physical Exam - Head Exam Head Exam: ATRAUMATIC - Eye Exam Eye Exam: Normal appearance - ENT Exam ENT Exam: Mucous Membranes Dry - Respiratory Exam Respiratory Exam: NORMAL BREATHING PATTERN - Cardiovascular Exam Cardiovascular Exam: +S1, +S2 - GI/Abdominal Exam GI & Abdominal Exam: Normal Bowel Sounds - Extremities Exam Extremities exam: Positive for: normal inspection - Neurological Exam Neurological exam: Oriented x3 - Psychiatric Exam Psychiatric exam: Normal Affect, Normal Mood - Skin Skin Exam: Warm Results - Vital Signs Recent Vital Signs: Last Vital Signs Temp 99.3 F 08/19/18 14:00 Pulse 78 08/19/18 18:08 Resp 20 08/19/18 14:00 BP 137/46 L 08/19/18 18:08 Pulse Ox 91 L 08/19/18 14:00 - Labs Result Diagrams: 08/19/18 07:50 08/19/18 07:50 Labs: Laboratory Results - last 24 hr 08/18/18 08/19/18 08/19/18 21:13 05:59 07:50 WBC 6.0 RBC 2.63 L Hgb 7.7 L Hct 23.6 L MCV 89.7 MCH 29.3 MCHC 32.6 RDW 15.0 H Plt Count 298 MPV 10.4 Neut % (Auto) 71.3 H Lymph % (Auto) 22.6 [place] % (Auto) 5.2 Eos % (Auto) 0.7 L Baso % (Auto) 0.2 Lymph # (Auto) 1.4 [place] # (Auto) 0.3 Eos # (Auto) 0.0 Baso # (Auto) 0.01 Absolute Neuts (auto) 4.26 Sodium Potassium Chloride Carbon Dioxide Anion Gap BUN Creatinine Est GFR ( Amer) Est GFR (Non-Af Amer) POC Glucose (mg/dL) 134 H 86 Random Glucose Calcium Total Bilirubin AST ALT Alkaline Phosphatase Total Protein Albumin Globulin Albumin/Globulin Ratio 08/19/18 08/19/18 08/19/18 07:50 11:20 16:08 WBC RBC Hgb Hct MCV MCH MCHC RDW Plt Count MPV Neut % (Auto) Lymph % (Auto) [place] % (Auto) Eos % (Auto) Baso % (Auto) Lymph # (Auto) [place] # (Auto) Eos # (Auto) Baso # (Auto) Absolute Neuts (auto) Sodium 138 Potassium 3.6 Chloride 107 Carbon Dioxide 22 Anion Gap 13 BUN 45 H Creatinine 2.7 H Est GFR ( Amer) 21 Est GFR (Non-Af Amer) 17 POC Glucose (mg/dL) 191 H 233 H Random Glucose 77 Calcium 7.7 L Total Bilirubin 0.3 AST 32 ALT 27 Alkaline Phosphatase 74 Total Protein 5.8 Albumin 3.0 Globulin 2.7 Albumin/Globulin Ratio 1.1 Assessment & Plan (1) Anemia Assessment and Plan: hypoproliferative erythroid response secondary to CKD may be exacerbated by pneumonia agree with AISHWARYA treatment transfusion support PRN Thank you for this interesting consult. Status: Acute
[2018-08-20] MEDS: Sodium Chloride 0.9% 1,000 ML IV SCH (04:28)
[2018-08-20] MEDS: Pantoprazole 40 mg EC Tab PO SCH (05:44)
[2018-08-20 07:29] LABS: BASO # 0.02 K/mm3 (0.0-2.0); BASO % 0.4 % (0.0-3.0); EOS % 0.7 % (1.5-5.0); HEMOGLOBIN 7.7 g/dL (12.0-16.0); LYMPH # 1.3 (1.2-3.4); LYMPH % 23.1 % (22.0-35.0); MEAN CELL VOLUME 89.1 fl (80.0-105.0); MEAN CORPUSCULAR HEMOGLOBIN 29.1 pg (25.0-35.0); MEAN CORPUSCULAR HGB CONC 32.6 g/dl (31.0-37.0); MEAN PLATELET VOLUME 10.4 fl (7.0-11.0); MONO # 0.5 (0.1-0.6); MONO % 8.3 % (1.0-6.0); RBC 2.65 10^6/uL (3.5-6.1); WHITE BLOOD COUNT 5.5 10^3/uL (4.5-11.0)
[2018-08-20 07:37] LABS: CALCIUM 7.4 mg/dL (8.4-10.5)
[2018-08-20] MEDS ORDERED: Potassium Chloride 20 mEq ER Tab PO STA (07:58)
[2018-08-20] MEDS: Insulin Reg-MEDIUM-Coverage SC SCH ×3 (08:00→17:43)
--- NOTE | 2018-08-20 08:00 | CP.PCM.PN ---
<Brett Johnson - Last Filed: 08/20/18 15:38> Subjective - Date & Time of Evaluation Date of Evaluation: 08/20/18 Time of Evaluation: 08:00 - Subjective Subjective: Brett Johnson DO, PGY-1 Hospitalist Progress Note for Dr. Vail Patient was seen and examined at bedside this AM. Patient states she is less short of breath than on prior days. She states she ambulated in hallways yesterday with her daughter and has been using IS. Objective - Vital Signs/Intake and Output Vital Signs (last 24 hours): Temp Pulse Resp BP Pulse Ox 99.4 F 80 18 139/46 L 93 L 08/19/18 21:36 08/19/18 21:36 08/19/18 21:36 08/19/18 21:36 08/19/18 21:36 Intake and Output: 08/20/18 08/20/18 06:59 18:59 Intake Total 600 Balance 600 - Medications Medications: Current Medications Acetaminophen (Tylenol 325mg Tab) 650 mg PO Q6H PRN PRN Reason: Pain, moderate (4-7) Last Admin: 08/18/18 17:22 Dose: 650 mg Amlodipine Besylate (Norvasc) 5 mg PO DAILY [facility] Last Admin: 08/19/18 09:44 Dose: 5 mg Artificial Tears (Artificial Tears Opht Oint) 0 gm OU QID [facility] Last Admin: 08/19/18 22:18 Dose: Not Given Darbepoetin Nabil (Aranesp) 60 mcg SC QWK [facility] Last Admin: 08/19/18 14:29 Dose: 60 mcg Dextrose (Dextrose 50% Inj) 0 ml IV STAT PRN; Protocol PRN Reason: Hypoglycemia Protocol Docusate Sodium (Colace) 100 mg PO TID [facility] Last Admin: 08/19/18 17:58 Dose: 100 mg Ferrous Sulfate (Feosol) 324 mg PO TID [facility] Last Admin: 08/19/18 13:25 Dose: 324 mg Gabapentin (Neurontin) 100 mg PO BID [facility]; Protocol Last Admin: 08/19/18 17:59 Dose: 100 mg Glimepiride (Amaryl) 2 mg PO DAILY [facility] Last Admin: 08/19/18 13:26 Dose: 2 mg Guaifenesin (Robitussin) 100 mg PO Q4H PRN PRN Reason: Cough Last Admin: 08/18/18 05:42 Dose: 100 mg Heparin Sodium (Porcine) (Heparin) 5,000 units SC Q8 [facility]; Protocol Last Admin: 08/20/18 05:45 Dose: 5,000 units Hydralazine HCl (Apresoline) 100 mg PO TID [facility] Last Admin: 08/19/18 17:54 Dose: Not Given Dextrose (Dextrose 5% In Water 1000 Ml) 1,000 mls @ 0 mls/hr IV .Q0M PRN; Protocol PRN Reason: Hypoglycemia Protocol Ceftriaxone Sodium (Rocephin 1 Gram Ivpb) 1 gm in 100 mls @ 100 mls/hr IVPB DAILY [facility]; Protocol Stop: 08/22/18 10:59 Last Admin: 08/19/18 09:46 Dose: 100 mls/hr Doxycycline Hyclate 100 mg/ (Sodium Chloride) 100 mls @ 100 mls/hr IVPB Q12 [facility]; Protocol Last Admin: 08/19/18 22:19 Dose: 100 mls/hr Sodium Chloride (Sodium Chloride 0.9%) 1,000 mls @ 75 mls/hr IV .[id number] [facility] Last Admin: 08/20/18 04:28 Dose: 75 mls/hr Insulin Human Regular (Humulin R Med) 0 units SC ACHS [facility]; Protocol Last Admin: 08/19/18 22:18 Dose: Not Given Isosorbide Mononitrate (Imdur Er) 30 mg PO TID [facility] Last Admin: 08/19/18 13:25 Dose: 30 mg Levalbuterol HCl (Xopenex) 0.63 mg IH TIDRESP [facility] Last Admin: 08/19/18 20:44 Dose: 0.63 mg Metoprolol Tartrate (Lopressor) 100 mg PO BID [facility] Last Admin: 08/19/18 18:08 Dose: 50 mg Ketorolac Tromethamine [Acular ] 5 Ml (Home) 0 ml OP DAILY [facility] Last Admin: 08/18/18 11:41 Dose: Not Given Prednisolone Acet 1% ([place] (Home)) 0 ml OP DAILY [facility] Last Admin: 08/19/18 18:00 Dose: Not Given Pantoprazole Sodium (Protonix Ec Tab) 40 mg PO 0600 [facility] Last Admin: 08/20/18 05:44 Dose: 40 mg Vitamin B Complex/Vit C/Folic Acid (Nephro-Arnoldo) 1 tab PO DAILY [facility] Last Admin: 08/19/18 09:42 Dose: 1 tab - Labs Labs: 08/20/18 06:15 08/20/18 06:15 PT 13.4 SECONDS (9.4-12.5) H 08/17/18 10:30 INR 1.19 08/17/18 10:30 APTT 37.7 Seconds (26.9-38.3) 08/17/18 10:30 - Constitutional Appears: Non-toxic, No Acute Distress - Head Exam Head Exam: ATRAUMATIC, NORMOCEPHALIC - Eye Exam Eye Exam: EOMI, Normal appearance, PERRL - ENT Exam ENT Exam: Mucous Membranes Moist - Neck Exam Neck Exam: Full ROM, Normal Inspection - Respiratory Exam Respiratory Exam: Rales (loudest RLL), Rhonchi (improved from prior exams). absent: Accessory Muscle Use, Decreased Breath Sounds, Wheezes, Respiratory Distress - Cardiovascular Exam Cardiovascular Exam: REGULAR RHYTHM, RRR, +S1, +S2. absent: Gallop, Rubs, Murmur - GI/Abdominal Exam GI & Abdominal Exam: Soft, Normal Bowel Sounds. absent: Guarding, Tenderness - Extremities Exam Extremities Exam: Normal Inspection. absent: Pedal Edema - Back Exam Back Exam: NORMAL INSPECTION - Neurological Exam Neurological Exam: Alert, Awake, Oriented x3 - Psychiatric Exam Psychiatric exam: Normal Affect, Normal Mood - Skin Skin Exam: Dry, Intact, Warm Assessment and Plan - Assessment and Plan (Free Text) Assessment: 78 yo F with PMH of HTN, DM2, and CKD stage 4 presents with fever and cough. CXR is suggestive of LLL CAP. Since admission, she has also had worsening of chronic anemia and renal function. Plan: CAP Patient afebrile overnight Continue doxycycline 100 mg IVPB BID and rocephin 1 g IVPB daily Blood cx no growth at 3 days Continue robitussin PRN cough and duo-neb PRN for SOB Patient has still not gotten out of bed regularly since admission and daughter expressed concern Plan for regular ambulation and OOB to chair today Pulmonary Edema CXR identified b/l vascular congestion in addition to LLL infiltrate Suspect likely 2/2 edema from infection vs decreased renal function Continue strict I & O Patient's SOB has improved since admission F/u additional cardiology recs Normocytic anemia Suspect 2/2 anemia of chronic disease from CKD H/H has been stable remaining at 7.7/23.6 this AM Per nephrology, may start weekly aranesp Per Dr. Blum, no additional management at this time Troponin elevation Troponin negative x 3 Likely 2/2 hx of CKD F/u additional cardiology recs Hx CKD BUN/Cr stable compared to yesterday at 49/2.6 Nephrology states no need for acute renal replacement at this time D/c IVF F/u additional nephrology recs Renal diet and medication doses Hx DM2 A1c 5.2 this visit Continue ISS with ACHS fingerstick glucose while admitted Continue home DM2 medications Hx HTN Continue other home BP meds, may increase amlodipine if needed F/u additional nephrology recs DVT/GI PPX: SC heparin, protonix Full Code HH, diabetic, renal diet Monitor on med/surg Patient seen, examined, and plan discussed with my attending Dr. Yared Johnson, D.O. IM Resident PGY-1 Pager: [phone] <Elvin Vail - Last Filed: 08/20/18 17:57> Objective - Vital Signs/Intake and Output Vital Signs (last 24 hours): Temp Pulse Resp BP Pulse Ox 98.7 F 79 20 155/61 H 94 L 08/20/18 14:00 08/20/18 17:41 08/20/18 14:00 08/20/18 17:41 08/20/18 14:00 Intake and Output: 08/20/18 08/20/18 06:59 18:59 Intake Total 600 Balance 600 - Medications Medications: Current Medications Acetaminophen (Tylenol 325mg Tab) 650 mg PO Q6H PRN PRN Reason: Pain, moderate (4-7) Last Admin: 08/18/18 17:22 Dose: 650 mg Amlodipine Besylate (Norvasc) 5 mg PO DAILY [facility] Last Admin: 08/20/18 11:08 Dose: Not Given Artificial Tears (Artificial Tears Opht Oint) 0 gm OU QID [facility] Last Admin: 08/20/18 17:42 Dose: 1 applic Darbepoetin Nabil (Aranesp) 60 mcg SC QWK [facility] Last Admin: 08/19/18 14:29 Dose: 60 mcg Dextrose (Dextrose 50% Inj) 0 ml IV STAT PRN; Protocol PRN Reason: Hypoglycemia Protocol Docusate Sodium (Colace) 100 mg PO TID [facility] Last Admin: 08/20/18 17:39 Dose: 100 mg Ferrous Sulfate (Feosol) 324 mg PO TID [facility] Last Admin: 08/20/18 17:40 Dose: 324 mg Gabapentin (Neurontin) 100 mg PO BID [facility]; Protocol Last Admin: 08/20/18 17:44 Dose: 100 mg Glimepiride (Amaryl) 2 mg PO DAILY [facility] Last Admin: 08/20/18 11:13 Dose: Not Given Guaifenesin (Robitussin) 100 mg PO Q4H PRN PRN Reason: Cough Last Admin: 08/20/18 11:39 Dose: 100 mg Heparin Sodium (Porcine) (Heparin) 5,000 units SC Q8 [facility]; Protocol Last Admin: 08/20/18 14:44 Dose: Not Given Hydralazine HCl (Apresoline) 100 mg PO TID [facility] Last Admin: 08/20/18 17:40 Dose: Not Given Dextrose (Dextrose 5% In Water 1000 Ml) 1,000 mls @ 0 mls/hr IV .Q0M PRN; Protocol PRN Reason: Hypoglycemia Protocol Ceftriaxone Sodium (Rocephin 1 Gram Ivpb) 1 gm in 100 mls @ 100 mls/hr IVPB DAILY [facility]; Protocol Stop: 08/22/18 10:59 Last Admin: 08/20/18 11:05 Dose: 100 mls/hr Doxycycline Hyclate 100 mg/ (Sodium Chloride) 100 mls @ 100 mls/hr IVPB Q12 [facility]; Protocol Last Admin: 08/20/18 11:09 Dose: 100 mls/hr Sodium Chloride (Sodium Chloride 0.9%) 1,000 mls @ 75 mls/hr IV .[id number] [facility] Stop: 08/21/18 00:01 Last Admin: 08/20/18 14:47 Dose: 75 mls/hr Insulin Human Regular (Humulin R Med) 0 units SC ACHS [facility]; Protocol Last Admin: 08/20/18 17:43 Dose: Not Given Isosorbide Mononitrate (Imdur Er) 30 mg PO TID [facility] Last Admin: 08/20/18 17:40 Dose: 30 mg Levalbuterol HCl (Xopenex) 0.63 mg IH TIDRESP [facility] Last Admin: 08/20/18 13:46 Dose: 0.63 mg Metoprolol Tartrate (Lopressor) 100 mg PO BID [facility] Last Admin: 08/20/18 17:41 Dose: 100 mg Ketorolac Tromethamine [Acular ] 5 Ml (Home) 0 ml OP DAILY [facility] Last Admin: 08/20/18 11:09 Dose: Not Given Prednisolone Acet 1% ([place] (Home)) 0 ml OP DAILY [facility] Last Admin: 08/20/18 11:09 Dose: Not Given Pantoprazole Sodium (Protonix Ec Tab) 40 mg PO 0600 [facility] Last Admin: 08/20/18 05:44 Dose: 40 mg Sodium Bicarbonate (Sodium Bicarbonate Tab) 650 mg PO BID [facility] Last Admin: 08/20/18 17:40 Dose: 650 mg Vitamin B Complex/Vit C/Folic Acid (Nephro-Arnoldo) 1 tab PO DAILY [facility] Last Admin: 08/20/18 11:16 Dose: 1 tab - Labs Labs: 08/20/18 06:15 08/20/18 06:15 PT 13.4 SECONDS (9.4-12.5) H 08/17/18 10:30 INR 1.19 08/17/18 10:30 APTT 37.7 Seconds (26.9-38.3) 08/17/18 10:30 Attending/Attestation - Attestation I have personally seen and examined this patient.: Yes I have fully participated in the care of the patient.: Yes I have reviewed all pertinent clinical information, including history, physical exam and plan: Yes Notes (Text): 08/20/18 17:56 78 year old female with past medical history of hypertension, diabetes, and CKD who presented with complaint of fever, cough and generalized weakness. She was found to have multifocal infiltrates with pulmonary congestion on CXR with elevated probnp at 6750. Continue with iv antibiotics. Cultures are negative to date. Echocardiogram reviewed showing preserved EF; diastolic dysfunction. Cardiology is following. Continue with home medications for hypertension except for cholthalidone on hold for now due to CKD. Nephrology is following for acute on chronic kidney disease. Hematology evaluation was appreciated for anemia. Out of bed to chair and PT evaluation ordered. Elvin Vail MD Hospitalist.
[2018-08-20] MEDS: Levalbuterol 0.63 MG/3 ML Inhal Soln UD IH SCH ×2 (09:05→13:46)
[2018-08-20] MEDS: Mineral Oil/Petrolatum Opht Oint(3.5 gm) OU SCH ×3 (10:00→17:42)
[2018-08-20] MEDS: cefTRIAXone 1 gm 1 GM/100 ML BAG IVPB SCH (11:05)
[2018-08-20] MEDS: PREDNISOLONE ACETATE 1% OP SCH (11:09)
[2018-08-20] MEDS: KETOROLAC TROMETHAMINE OP SCH (11:09)
[2018-08-20] MEDS: Multivitamin Vitamin B Complex (Nephro-Vite) Tab PO SCH (11:16)
[2018-08-20] MEDS: guaiFENesin 100 mg/5 ml Syrup UD PO PRN ×2 (11:39→17:56)
--- NOTE | 2018-08-20 11:57 | CP.PCM.PN ---
Subjective - Date & Time of Evaluation Date of Evaluation: 08/20/18 Time of Evaluation: 11:57 - Subjective Subjective: Nephrology Consultation Note: Assessment: Stable Acute Kidney Injury (N17.9) likely due to sepsis, Pneumonia Diabetic chronic Kidney Disease (E11.22) Hypertensive Chronic Kidney Disease (I12.9) Chronic Kidney Disease (N18.4) Stage 4 with ? mg proteinuria (R80.9) likely due to DM/HTN Anemia (D64.9) sepsis with pneumonia Plan No acute need for renal replacement therapy at this time. Hypertension control with meds as ordered. Maintain hemodynamics stable. Avoid hypotension. Patient not on acei/ARB held due to recent ALO. if needed, can increase norvasc to 10 mg/d Monitor Input/Output, daily weights and renal function with basic metabolic panel started iron, MVI and weekly aransep. PRBC as needed appreciate heme evaluation suggest IVF as NS @ 50-75 ml/hr till tonight then d/c as oral intake better d/c cardura Check urine spot protein/creatinine, albumin/creatinine ratio Anemia work up with serum protein electrophoresis with immunofixation, serum free light chain assay ([place]/Lambda) Check for 25-OH vitamin D, iPTH Dose meds/antibiotics for reduced GFR. Avoid fleets enema/magnesium based laxatives. Avoid nephrotoxins/NSAIDs/ iodinated contrast (unless needed emergently) Glycemic control Further work up/management as per primary team Thanks for allowing me to participate in care of your patient. Will follow patie nt with you. Please call if any Qs. had d/w team and family bedside Dr Estuardo Styles Office: [phone] Chief Complaint; SOB Reason for consult: Acute Kidney Injury on CKD HPI: Pt is a 78 F with hx of diabetes Mellitus (1994) with retinopathy s/p laser surgery, hypertension (>10 years) CKD 4 with baseline cr ~2 (f/up with Dr Savage), ALO in past requiring temp dialysis (2-3 sessions) presented with complaints of SOB cough and fever admitted for pneumonia. renal consult for ALO on CKD 3. cough better. temp coming down. decreased oral intake and appetite for last few days. no urine complaints Denies OTC/herbal meds or NSAIDs No recent iodinated contrast exposure. No obvious episodes of low BP. ROS: oral intake and appetite better Cardiovascular: No chest pain. Pulmonary: denies shortness of breath Gastrointestinal: denies abdominal pain No nausea. No vomiting. Genitourinary: No pain while urinating. Denies blood in urine. All other negative except as mentioned in HPI Physical Examination: General Appearance: Comfortable, in no acute respiratory distress, co-operative . Vitals reviewed and noted as below Head; Atraumatic, normocephalic ENT: no ulcers no thrush. Tongue is midline. Oropharynx: no rash or ulcers. EYES: Pupils are equal, round and reactive to light accommodation. Eye muscles and extraocular movement intact. Sclera is anicteric. Neck; supple no lymphadenopathy, no thyromegaly or bruit Lungs: Normal respiratory rate/effort. Breath sounds bilateral rales/ crackles Heart: Normal rate. s1s2 normal. No rub or gallop. Extremities: no edema. No varicose veins Neurological: Patient is alert, awake and oriented to person, place and time. No focal deficit. Strength bilateral appropriate and equal Skin: Warm and dry. Normal turgor. No rash. Palpitation: Normal elasticity for age Abdomen: Abdomen is soft. Bowel sounds +. There is no abdominal tenderness, no guarding/rigidity no organomegaly. ? ascites. Psych: limited insight and normal affect/mood MSK: no joint tenderness or swelling. Digits and nails normal, no deformity : kidney or bladder not palpable Labs/imaging reviewed. Past medical history, past surgical history, family history, social history, allergy reviewed and noted as below Family hx: no hx of CKD. Rest non-contributory Objective - Vital Signs/Intake and Output Vital Signs (last 24 hours): Temp Pulse Resp BP Pulse Ox 98.5 F 81 18 168/63 H 93 L 08/20/18 06:00 08/20/18 11:06 08/20/18 06:00 08/20/18 11:06 08/20/18 06:00 Intake and Output: 08/20/18 08/20/18 06:59 18:59 Intake Total 600 Balance 600 - Medications Medications: Current Medications Acetaminophen (Tylenol 325mg Tab) 650 mg PO Q6H PRN PRN Reason: Pain, moderate (4-7) Last Admin: 08/18/18 17:22 Dose: 650 mg Amlodipine Besylate (Norvasc) 5 mg PO DAILY [facility] Last Admin: 08/20/18 11:08 Dose: Not Given Artificial Tears (Artificial Tears Opht Oint) 0 gm OU QID [facility] Last Admin: 08/19/18 22:18 Dose: Not Given Darbepoetin Nabil (Aranesp) 60 mcg SC QWK [facility] Last Admin: 08/19/18 14:29 Dose: 60 mcg Dextrose (Dextrose 50% Inj) 0 ml IV STAT PRN; Protocol PRN Reason: Hypoglycemia Protocol Docusate Sodium (Colace) 100 mg PO TID [facility] Last Admin: 08/20/18 11:05 Dose: 100 mg Ferrous Sulfate (Feosol) 324 mg PO TID [facility] Last Admin: 08/20/18 11:10 Dose: 324 mg Gabapentin (Neurontin) 100 mg PO BID [facility]; Protocol Last Admin: 08/20/18 11:06 Dose: 100 mg Glimepiride (Amaryl) 2 mg PO DAILY [facility] Last Admin: 08/20/18 11:13 Dose: Not Given Guaifenesin (Robitussin) 100 mg PO Q4H PRN PRN Reason: Cough Last Admin: 08/20/18 11:39 Dose: 100 mg Heparin Sodium (Porcine) (Heparin) 5,000 units SC Q8 [facility]; Protocol Last Admin: 08/20/18 05:45 Dose: 5,000 units Hydralazine HCl (Apresoline) 100 mg PO TID [facility] Last Admin: 08/20/18 11:07 Dose: Not Given Dextrose (Dextrose 5% In Water 1000 Ml) 1,000 mls @ 0 mls/hr IV .Q0M PRN; Protocol PRN Reason: Hypoglycemia Protocol Ceftriaxone Sodium (Rocephin 1 Gram Ivpb) 1 gm in 100 mls @ 100 mls/hr IVPB DAILY [facility]; Protocol Stop: 08/22/18 10:59 Last Admin: 08/20/18 11:05 Dose: 100 mls/hr Doxycycline Hyclate 100 mg/ (Sodium Chloride) 100 mls @ 100 mls/hr IVPB Q12 [facility]; Protocol Last Admin: 08/20/18 11:09 Dose: 100 mls/hr Insulin Human Regular (Humulin R Med) 0 units SC ACHS [facility]; Protocol Last Admin: 08/19/18 22:18 Dose: Not Given Isosorbide Mononitrate (Imdur Er) 30 mg PO TID [facility] Last Admin: 08/20/18 11:16 Dose: 30 mg Levalbuterol HCl (Xopenex) 0.63 mg IH TIDRESP [facility] Last Admin: 08/20/18 09:05 Dose: 0.63 mg Metoprolol Tartrate (Lopressor) 100 mg PO BID [facility] Last Admin: 08/20/18 11:06 Dose: 100 mg Ketorolac Tromethamine [Acular ] 5 Ml (Home) 0 ml OP DAILY [facility] Last Admin: 08/20/18 11:09 Dose: Not Given Prednisolone Acet 1% ([place] (Home)) 0 ml OP DAILY [facility] Last Admin: 08/20/18 11:09 Dose: Not Given Pantoprazole Sodium (Protonix Ec Tab) 40 mg PO 0600 [facility] Last Admin: 08/20/18 05:44 Dose: 40 mg Sodium Bicarbonate (Sodium Bicarbonate Tab) 650 mg PO BID [facility] Last Admin: 08/20/18 11:17 Dose: 650 mg Vitamin B Complex/Vit C/Folic Acid (Nephro-Arnoldo) 1 tab PO DAILY [facility] Last Admin: 08/20/18 11:16 Dose: 1 tab - Labs Labs: 08/20/18 06:15 08/20/18 06:15 PT 13.4 SECONDS (9.4-12.5) H 08/17/18 10:30 INR 1.19 08/17/18 10:30 APTT 37.7 Seconds (26.9-38.3) 08/17/18 10:30
[2018-08-20] MEDS ORDERED: Sodium Chloride 0.9% 1,000 ML IV SCH (12:00)
[2018-08-20 22:27] VITALS: RESP 18
[2018-08-21] MEDS: Pantoprazole 40 mg EC Tab PO SCH (05:42)
[2018-08-21] MEDS: Insulin Reg-MEDIUM-Coverage SC SCH ×2 (08:00→12:00)
[2018-08-21] MEDS: Levalbuterol 0.63 MG/3 ML Inhal Soln UD IH SCH ×2 (08:03→14:10)
[2018-08-21 08:47] LABS: BASO # 0.01 K/mm3 (0.0-2.0); BASO % 0.2 % (0.0-3.0); EOS % 0.5 % (1.5-5.0); HEMOGLOBIN 7.5 g/dL (12.0-16.0); LYMPH # 1.5 (1.2-3.4); LYMPH % 23.5 % (22.0-35.0); MEAN CELL VOLUME 88.3 fl (80.0-105.0); MEAN CORPUSCULAR HEMOGLOBIN 28.3 pg (25.0-35.0); MEAN CORPUSCULAR HGB CONC 32.1 g/dl (31.0-37.0); MEAN PLATELET VOLUME 10.1 fl (7.0-11.0); MONO # 0.4 (0.1-0.6); MONO % 6.5 % (1.0-6.0); RBC 2.65 10^6/uL (3.5-6.1); RED CELL DISTRIBUTION WIDTH 15.1 % (11.5-14.5); WHITE BLOOD COUNT 6.2 10^3/uL (4.5-11.0)
[2018-08-21 09:11] LABS: ALB/GLOB RATIO 1.1 (1.1-1.8); ALBUMIN 2.9 g/dL (3.0-4.8); CALCIUM 7.5 mg/dL (8.4-10.5)
[2018-08-21] MEDS: Multivitamin Vitamin B Complex (Nephro-Vite) Tab PO SCH (10:26)
[2018-08-21] MEDS: PREDNISOLONE ACETATE 1% OP SCH (10:28)
[2018-08-21] MEDS: cefTRIAXone 1 gm 1 GM/100 ML BAG IVPB SCH (10:28)
[2018-08-21] MEDS: guaiFENesin 100 mg/5 ml Syrup UD PO PRN (10:28)
--- NOTE | 2018-08-21 12:47 | CP.PCM.PN ---
Subjective - Date & Time of Evaluation Date of Evaluation: 08/21/18 Time of Evaluation: 12:46 - Subjective Subjective: Nephrology Consultation Note: Assessment: Stable Acute Kidney Injury (N17.9) likely due to sepsis, Pneumonia Diabetic chronic Kidney Disease (E11.22) Hypertensive Chronic Kidney Disease (I12.9) Chronic Kidney Disease (N18.4) Stage 4 with ? mg proteinuria (R80.9) likely due to DM/HTN Anemia (D64.9) sepsis with pneumonia Plan No acute need for renal replacement therapy at this time. Hypertension control with meds as ordered. Maintain hemodynamics stable. Avoid hypotension. Patient not on acei/ARB hence added losartan 50 mg/d. increase norvasc to 10 mg/d and resume chlorthalidone Monitor Input/Output, daily weights and renal function with basic metabolic panel started iron, MVI and weekly aransep. PRBC as needed appreciate heme evaluation Check urine spot protein/creatinine, albumin/creatinine ratio Anemia work up with serum protein electrophoresis with immunofixation, serum free light chain assay ([place]/Lambda) Check for 25-OH vitamin D, iPTH Dose meds/antibiotics for reduced GFR. Avoid fleets enema/magnesium based laxatives. Avoid nephrotoxins/NSAIDs/ iodinated contrast (unless needed emergently) Glycemic control Further work up/management as per primary team Thanks for allowing me to participate in care of your patient. Will follow patient with you. Please call if any Qs. had d/w team and family bedside Dr Estuardo Styles Office: [phone] Chief Complaint; SOB Reason for consult: Acute Kidney Injury on CKD HPI: Pt is a 78 F with hx of diabetes Mellitus (1994) with retinopathy s/p laser surgery, hypertension (>10 years) CKD 4 with baseline cr ~2 (f/up with Dr Mack hebert), ALO in past requiring temp dialysis (2-3 sessions) presented with complaints of SOB cough and fever admitted for pneumonia. renal consult for ALO on CKD 3. cough better. temp coming down. decreased oral intake and appetite for last few days. no urine complaints Denies OTC/herbal meds or NSAIDs No recent iodinated contrast exposure. No obvious episodes of low BP. ROS: oral intake and appetite better Cardiovascular: No chest pain. Pulmonary: denies shortness of breath Gastrointestinal: denies abdominal pain No nausea. No vomiting. Genitourinary: No pain while urinating. Denies blood in urine. All other negative except as mentioned in HPI Physical Examination: General Appearance: Comfortable, in no acute respiratory distress, co-operative . Vitals reviewed and noted as below Head; Atraumatic, normocephalic ENT: no ulcers no thrush. Tongue is midline. Oropharynx: no rash or ulcers. EYES: Pupils are equal, round and reactive to light accommodation. Eye muscles and extraocular movement intact. Sclera is anicteric. Neck; supple no lymphadenopathy, no thyromegaly or bruit Lungs: Normal respiratory rate/effort. Breath sounds bilateral clearer Heart: Normal rate. s1s2 normal. No rub or gallop. Extremities: no edema. No varicose veins Neurological: Patient is alert, awake and oriented to person, place and time. No focal deficit. Strength bilateral appropriate and equal Skin: Warm and dry. Normal turgor. No rash. Palpitation: Normal elasticity for age Abdomen: Abdomen is soft. Bowel sounds +. There is no abdominal tenderness, no guarding/rigidity no organomegaly. ? ascites. Psych: limited insight and normal affect/mood MSK: no joint tenderness or swelling. Digits and nails normal, no deformity : kidney or bladder not palpable Labs/imaging reviewed. Past medical history, past surgical history, family history, social history, allergy reviewed and noted as below Family hx: no hx of CKD. Rest non-contributory Objective - Vital Signs/Intake and Output Vital Signs (last 24 hours): Temp Pulse Resp BP Pulse Ox 98.8 F 79 18 187/63 H 95 08/21/18 06:00 08/21/18 07:12 08/21/18 06:00 08/21/18 10:26 08/21/18 06:00 Intake and Output: 08/21/18 08/21/18 06:59 18:59 Intake Total 240 Balance 240 - Medications Medications: Current Medications Acetaminophen (Tylenol 325mg Tab) 650 mg PO Q6H PRN PRN Reason: Pain, moderate (4-7) Last Admin: 08/18/18 17:22 Dose: 650 mg Amlodipine Besylate (Norvasc) 10 mg PO DAILY THOMAS Last Admin: 08/21/18 10:26 Dose: 10 mg Artificial Tears (Artificial Tears Opht Oint) 0 gm OU QID [facility] Last Admin: 08/20/18 17:42 Dose: 1 applic Chlorthalidone (Hygroton) 25 mg PO DAILY [facility] Last Admin: 08/21/18 10:26 Dose: 25 mg Darbepoetin Nabil (Aranesp) 60 mcg SC QWK [facility] Last Admin: 08/19/18 14:29 Dose: 60 mcg Dextrose (Dextrose 50% Inj) 0 ml IV STAT PRN; Protocol PRN Reason: Hypoglycemia Protocol Docusate Sodium (Colace) 100 mg PO TID [facility] Last Admin: 08/21/18 10:27 Dose: 100 mg Ferrous Sulfate (Feosol) 324 mg PO TID [facility] Last Admin: 08/21/18 10:27 Dose: 324 mg Gabapentin (Neurontin) 100 mg PO BID [facility]; Protocol Last Admin: 08/21/18 10:27 Dose: 100 mg Glimepiride (Amaryl) 2 mg PO DAILY [facility] Last Admin: 08/21/18 10:29 Dose: Not Given Guaifenesin (Robitussin) 100 mg PO Q4H PRN PRN Reason: Cough Last Admin: 08/21/18 10:28 Dose: 100 mg Heparin Sodium (Porcine) (Heparin) 5,000 units SC Q8 [facility]; Protocol Last Admin: 08/21/18 05:41 Dose: 5,000 units Hydralazine HCl (Apresoline) 100 mg PO TID [facility] Last Admin: 08/21/18 10:26 Dose: 100 mg Hydralazine HCl (Apresoline) 25 mg PO Q4 PRN PRN Reason: Other Dextrose (Dextrose 5% In Water 1000 Ml) 1,000 mls @ 0 mls/hr IV .Q0M PRN; Protocol PRN Reason: Hypoglycemia Protocol Ceftriaxone Sodium (Rocephin 1 Gram Ivpb) 1 gm in 100 mls @ 100 mls/hr IVPB DAILY [facility]; Protocol Stop: 08/22/18 10:59 Last Admin: 08/21/18 10:28 Dose: 100 mls/hr Doxycycline Hyclate 100 mg/ (Sodium Chloride) 100 mls @ 100 mls/hr IVPB Q12 [facility]; Protocol Last Admin: 08/21/18 10:53 Dose: 100 mls/hr Insulin Human Regular (Humulin R Med) 0 units SC ACHS [facility]; Protocol Last Admin: 08/21/18 08:00 Dose: Not Given Isosorbide Mononitrate (Imdur Er) 30 mg PO TID [facility] Last Admin: 08/21/18 10:27 Dose: 30 mg Levalbuterol HCl (Xopenex) 0.63 mg IH TIDRESP [facility] Last Admin: 08/21/18 08:03 Dose: 0.63 mg Losartan Potassium (Cozaar) 50 mg PO QPM [facility] Metoprolol Tartrate (Lopressor) 100 mg PO BID [facility] Last Admin: 08/21/18 10:28 Dose: Not Given Ketorolac Tromethamine [Acular ] 5 Ml (Home) 0 ml OP DAILY [facility] Last Admin: 08/20/18 11:09 Dose: Not Given Prednisolone Acet 1% ([place] (Home)) 0 ml OP DAILY [facility] Last Admin: 08/21/18 10:28 Dose: Not Given Pantoprazole Sodium (Protonix Ec Tab) 40 mg PO 0600 [facility] Last Admin: 08/21/18 05:42 Dose: 40 mg Sodium Bicarbonate (Sodium Bicarbonate Tab) 650 mg PO BID [facility] Last Admin: 08/21/18 10:23 Dose: 650 mg Vitamin B Complex/Vit C/Folic Acid (Nephro-[place]) 1 tab PO DAILY [facility] Last Admin: 08/21/18 10:26 Dose: 1 tab - Labs Labs: 08/21/18 08:30 08/21/18 08:30 PT 13.4 SECONDS (9.4-12.5) H 08/17/18 10:30 INR 1.19 08/17/18 10:30 APTT 37.7 Seconds (26.9-38.3) 08/17/18 10:30
[2018-08-21 14:17] VITALS: BP 137/47; PULSE 78; TEMP 99.6; O2SAT 94
--- NOTE | 2018-08-21 17:26 | CP.PCM.DIS ---
<Brett Johnson - Last Filed: 08/21/18 17:36> Provider - Provider Date of Admission: 08/17/18 11:40 Attending physician: Elvin Vail MD Primary care physician: PMD: Colette Spout Positioner: Stephanie Research Biostatistician: Kulwant Consults: 08/17/18 12:54 Physician Consult Routine Comment: Consulting Provider: Carla Salamanca Consulting Physician: Carla Salamanca Reason for Consult: hx CHF possible CAD, mild trop elevation 08/17/18 22:40 Social Work Referral Routine Comment: d/c plan Physician Instructions: Reason For Exam: eval 08/17/18 23:01 Inpatient [facility] Core Measures Referral Routine Comment: pneumonia Physician Instructions: Reason For Exam: eval Transition In Care/Readmission Reduction Routine Comment: pneumonia Physician Instructions: Reason For Exam: eval 08/19/18 13:39 Physician Consult Routine Comment: Consulting Provider: Estuardo Styles Consulting Physician: Estuardo Styles Reason for Consult: hx CKD, Cr increasing 08/19/18 13:40 Physician Consult Routine Comment: Consulting Provider: Ryan Blum Consulting Physician: Ryan Blum Reason for Consult: known to Dr. Blum, worsening anemia Time Spent in preparation of Discharge (in minutes): 40 Diagnosis - Discharge Diagnosis (1) Anemia in chronic kidney disease Status: Chronic (2) ESRD (end stage renal disease) Status: Chronic (3) Pneumonia Status: Resolved Hospital Course - Lab Results Lab Results: Micro Results 08/17/18 11:00 Blood Blood Culture - Preliminary NO GROWTH AFTER 4 DAYS 08/17/18 10:30 Blood Blood Culture - Preliminary NO GROWTH AFTER 4 DAYS Most Recent Lab Values WBC 6.2 10^3/uL (4.5-11.0) 08/21/18 08:30 RBC 2.65 10^6/uL (3.5-6.1) L 08/21/18 08:30 Hgb 7.5 g/dL (12.0-16.0) L 08/21/18 08:30 Hct 23.4 % (36.0-48.0) L 08/21/18 08:30 MCV 88.3 fl (80.0-105.0) 08/21/18 08:30 MCH 28.3 pg (25.0-35.0) 08/21/18 08:30 MCHC 32.1 g/dl (31.0-37.0) 08/21/18 08:30 RDW 15.1 % (11.5-14.5) H 08/21/18 08:30 Plt Count 400 10^3/uL (120.0-450.0) 08/21/18 08:30 MPV 10.1 fl (7.0-11.0) 08/21/18 08:30 Neut % (Auto) 69.3 % (50.0-68.0) H 08/21/18 08:30 Lymph % (Auto) 23.5 % (22.0-35.0) 08/21/18 08:30 Dewey % (Auto) 6.5 % (1.0-6.0) H 08/21/18 08:30 Eos % (Auto) 0.5 % (1.5-5.0) L 08/21/18 08:30 Baso % (Auto) 0.2 % (0.0-3.0) 08/21/18 08:30 Lymph # (Auto) 1.5 (1.2-3.4) 08/21/18 08:30 Dewey # (Auto) 0.4 (0.1-0.6) 08/21/18 08:30 Eos # (Auto) 0.0 (0.0-0.7) 08/21/18 08:30 Baso # (Auto) 0.01 K/mm3 (0.0-2.0) 08/21/18 08:30 Absolute Neuts (auto) 4.27 (1.4-6.5) 08/21/18 08:30 PT 13.4 SECONDS (9.4-12.5) H 08/17/18 10:30 INR 1.19 08/17/18 10:30 APTT 37.7 Seconds (26.9-38.3) 08/17/18 10:30 pO2 36 mm/Hg (30-55) 08/17/18 11:00 VBG pH 7.41 (7.32-7.43) 08/17/18 11:00 VBG pCO2 44.0 (40-60) 08/17/18 11:00 VBG HCO3 27.9 mmol/l (21-28) 08/17/18 11:00 VBG Total CO2 29.3 mmol.L (22-28) H 08/17/18 11:00 VBG O2 Sat (Calc) 77.1 % (40-65) H 08/17/18 11:00 VBG Base Excess 2.7 mmol/L (0.0-2.0) H 08/17/18 11:00 VBG Potassium 4.1 mmol/L (3.6-5.2) 08/17/18 11:00 Sodium 141.0 mmol/L (132-148) 08/17/18 11:00 Chloride 108.0 mmol/L (98-107) H 08/17/18 11:00 Glucose 193 mg/dl (65-105) H 08/17/18 11:00 Lactate 1.5 mmol/L (0.7-2.1) 08/17/18 11:00 FiO2 21.0 % 08/17/18 11:00 Sodium 140 mmol/L (132-148) 08/21/18 08:30 Potassium 3.8 mmol/L (3.6-5.0) 08/21/18 08:30 Chloride 112 mmol/L (98-107) H 08/21/18 08:30 Carbon Dioxide 21 mmol/L (21-33) 08/21/18 08:30 Anion Gap 11 (10-20) 08/21/18 08:30 BUN 40 mg/dL (7-21) H 08/21/18 08:30 Creatinine 2.2 mg/dl (0.7-1.2) H 08/21/18 08:30 Est GFR ( Amer) 26 08/21/18 08:30 Est GFR (Non-Af Amer) 22 08/21/18 08:30 POC Glucose (mg/dL) 123 mg/dL (65-110) H 08/21/18 06:18 Random Glucose 104 mg/dL (70-110) 08/21/18 08:30 Hemoglobin A1c 5.2 % (4.2-6.5) 08/18/18 07:30 Calcium 7.5 mg/dL (8.4-10.5) L 08/21/18 08:30 Phosphorus 4.3 mg/dL (2.5-4.5) 08/18/18 07:30 Magnesium 1.7 mg/dL (1.7-2.2) 08/18/18 07:30 Iron 10 ug/dL (45-180) L 08/17/18 14:20 TIBC 207 ug/dL (265-497) L 08/17/18 14:20 % Saturation 5 % (20-55) L 08/17/18 14:20 Transferrin 142.03 mg/dL (206-381) L 08/17/18 14:20 Ferritin 899.0 ng/mL 08/17/18 14:20 Total Bilirubin 0.2 mg/dL (0.2-1.3) 08/21/18 08:30 AST 31 U/L (14-36) 08/21/18 08:30 ALT 17 U/L (7-56) 08/21/18 08:30 Alkaline Phosphatase 76 U/L (38-126) 08/21/18 08:30 Troponin I 0.06 ng/mL 08/17/18 21:59 NT-Pro-B Natriuret Pep 6750 pg/mL (0-450) H 08/17/18 11:40 Total Protein 5.6 g/dL (5.8-8.3) L 08/21/18 08:30 Total Protein (PEP) 5.3 g/dL (6.1-8.1) L 08/20/18 07:00 Albumin 2.9 g/dL (3.0-4.8) L 08/21/18 08:30 Globulin 2.7 gm/dL 08/21/18 08:30 Albumin/Globulin Ratio 1.1 (1.1-1.8) 08/21/18 08:30 Triglycerides 85 mg/dL (35-160) 08/18/18 07:30 Cholesterol 110 mg/dL (130-200) L 08/18/18 07:30 LDL Cholesterol Direct < 30 mg/dL (0-129) 08/18/18 07:30 HDL Cholesterol 41 mg/dL (29-60) 08/18/18 07:30 25-OH Vitamin D Total 35.1 NG/ML (30.0-100.0) 08/20/18 07:00 Procalcitonin 0.32 NG/ML (0.19-0.49) 08/17/18 14:20 TSH 3rd Generation 1.68 mIU/mL (0.46-4.68) 08/17/18 14:45 Venous Blood Potassium 4.1 mmol/L (3.6-5.2) 08/17/18 11:00 Urine Color Yellow (YELLOW) 08/17/18 12:30 Urine Appearance Clear (CLEAR) 08/17/18 12:30 Urine pH 6.0 (4.7-8.0) 08/17/18 12:30 Ur Specific Roslyn 1.025 (1.005-1.035) 08/17/18 12:30 Urine Protein 100 mg/dL (<30 mg/dL) H 08/17/18 12:30 Urine Glucose (UA) Negative mg/dL (NEGATIVE) 08/17/18 12:30 Urine Ketones Negative mg/dL (NEGATIVE) 08/17/18 12:30 Urine Blood Negative (NEGATIVE) 08/17/18 12:30 Urine Nitrate Negative (NEGATIVE) 08/17/18 12:30 Urine Bilirubin Negative (NEGATIVE) 08/17/18 12:30 Urine Urobilinogen 0.2 E.U./dL (<1 E.U./dL) 08/17/18 12:30 Ur Leukocyte Esterase Negative Livan/uL (NEGATIVE) 08/17/18 12:30 Urine RBC 0 - 2 /hpf (0-2) 08/17/18 12:30 Urine WBC 1 - 3 /hpf (0-6) 08/17/18 12:30 Ur Epithelial Cells 4 - 5 /hpf (0-5) 08/17/18 12:30 Amorphous Sediment Few /hpf (NONE) 08/17/18 12:30 Urine Bacteria Many /hpf (NONE) 08/17/18 12:30 Coarse Granular Casts Trace /hpf (NONE) 08/17/18 12:30 Waxy Casts 0 - 2 /hpf (NONE) 08/17/18 12:30 Urine Other Uyeast /hpf 08/17/18 12:30 Influenza Typ A,B (EIA) Negative for flu a/b (NEGATIVE) 08/17/18 10:30 - Hospital Course Hospital Course: Brett Johnson DO, PGY-1 Hospitalist Discharge Summary for Dr. Yared Callejas is a pleasant 78 year old female with PMH of HTN, DM2, and CKD stage 4 who presented to ED on 1/30/19 with her daughter (who is an RN at [employer] [employer] [place] for concerns of worsening fever (with Tmax of 102 prior to presentation at ED), cough, and SOB x 2 days. Her daughter states that she was first sick with cold like symptoms but then got worse and became febrile. CXR in ED showed LLL infiltrate with some b/l vascular congestion. She was subsequently admitted for treatment of acute community acquired PNA. She was also noted to be anemic and have elevated BUN/Cr on admission both of which were consistent with her baseline. She normally follows with Dr. Blum for management of anemia of renal disease and Dr. Brown for management of ESRD and difficult to control HTN. She was treated first with one-time doses of rocephin and zithromax in ED. However, it was noted that she had QTc of 467 in ED. She was instead treated with daily rocephin 1 g IVPB and 100 mg BID doxycycline IVPB. She was also given tylenol PRN for pain/fever and robitussin PRN for cough. She continued to be fe brile for two days following admission. It was also noted that her anemia and renal function began to decrease slightly. Dr. Blum was subsequently consulted and had no additional recommendations for the hospitalization. Dr. Styles was also consulted for recs regarding ESRD and HTN. Dr. Styles recommended starting cozaar, continuing chlorthalidone in addition to her current regimen on discharge. Dr. Nayely kelly, hook and eye sewing machine operator, was also consulted for concern of b/l vascular congestion seen on CXR. She was given a one time dose of lasix 20 mg IVP. Her SOB then improved. Dr. Galarza stated no additional cardiac work up was needed and suspected vascular congestion was most likely 2/2 pulmonary edema from PNA and/or ESRD. She continued to improve throughout her hospitalization and was able to ambulate in the hallways with her daughter regularly yesterday. This AM, she stated she felt better and ready to go home. She was subsequently discharged on 10 days of PO augmentin 500-125 mg BID (renal dose of augmentin) and PO doxycyline 100 mg BID. She was instructed to follow up with her primary medical doctor, audio visual arts director, and package handler. Discharge plan was discussed with patient and her daughter. All questions were answered. Patient seen, examined, and discharge plan discussed with my attending Dr. Yared Johnson D.O. IM Resident PGY-1 Discharge Exam - Head Exam Head Exam: ATRAUMATIC, NORMOCEPHALIC - Eye Exam Eye Exam: EOMI, Normal appearance, PERRL - ENT Exam ENT Exam: Mucous Membranes Moist - Neck Exam Neck exam: Full Rom, Normal Inspection - Respiratory Exam Respiratory Exam: Rales (faint rales auscultated over LLL improved from prior exams). absent: Accessory Muscle Use, Rhonchi, Wheezes, Respiratory Distress - Cardiovascular Exam Cardiovascular Exam: REGULAR RHYTHM, RRR, +S1, +S2. absent: Gallop, Rubs, Systolic Murmur - GI/Abdominal Exam GI & Abdominal Exam: Normal Bowel Sounds, Soft, Unremarkable - Extremities Exam Extremities exam: full ROM, normal inspection - Back Exam Back exam: NORMAL INSPECTION - Neurological Exam Neurological exam: Alert, Oriented x3 - Psychiatric Exam Psychiatric exam: Normal Affect, Normal Mood - Skin Skin Exam: Dry, Intact, Warm Discharge Plan - Discharge Medications Prescriptions: amLODIPine [Norvasc] 10 mg PO DAILY #14 tab Amoxicillin/Clavulanate [Augmentin 500 MG-125 MG] 1 tab PO BID 10 Days #20 tab Doxycycline Hyclate [Doryx] 200 mg PO BID 10 Days #20 tablet.[address] coyneFENesin [Robitussin] 100 mg PO Q4H PRN #1 udc PRN Reason: Cough Losartan [Cozaar] 50 mg PO QPM #14 tab - Follow Up Plan Condition: FAIR Disposition: HOME/ ROUTINE Instructions: Pneumonia, Adult (DC), Pneumococcal Conjugate Vaccine (13- Valent), Diabetes Diet , Anemia of Chronic Disease (DC), Community-Acquired Pneumonia, Adult (DC), Chronic Kidney Disease (DC), Renal Failure Diet (DC) Additional Instructions: Please follow up with your primary care doctor within 1 week of discharge. Please follow up with your primary audio visual arts director within 2 weeks of discharge. We have made some adjustments to your blood pressure medicines. Please follow up with your audio visual arts director to determine whether you will continue these. Please follow up with Dr. Blum within 2 weeks of discharge. We have prescribed two antibiotics for you. Please take these antibiotics twice a day for the next 10 days. If your symptoms return or worsen please return to nearest ED. <Elvin Vail - Last Filed: 08/21/18 18:10> Provider - Provider Date of Admission: 08/17/18 11:40 Attending physician: Elvin Vail MD Consults: 08/17/18 12:54 Physician Consult Routine Comment: Consulting Provider: Carla Salamanca Consulting Physician: Carla Salamanca Reason for Consult: hx CHF possible CAD, mild trop elevation 08/17/18 22:40 Social Work Referral Routine Comment: d/c plan Physician Instructions: Reason For Exam: eval 08/17/18 23:01 Inpatient [facility] Core Measures Referral Routine Comment: pneumonia Physician Instructions: Reason For Exam: eval Transition In Care/Readmission Reduction Routine Comment: pneumonia Physician Instructions: Reason For Exam: eval 08/19/18 13:39 Physician Consult Routine Comment: Consulting Provider: Estuardo Styles Consulting Physician: Estuardo Styles Reason for Consult: hx CKD, Cr increasing 08/19/18 13:40 Physician Consult Routine Comment: Consulting Provider: Ryan Blum Consulting Physician: Ryan Blum Reason for Consult: known to Dr. Blum, worsening anemia Hospital Course - Lab Results Lab Results: Micro Results 08/17/18 11:00 Blood Blood Culture - Preliminary NO GROWTH AFTER 4 DAYS 08/17/18 10:30 Blood Blood Culture - Preliminary NO GROWTH AFTER 4 DAYS Most Recent Lab Values WBC 6.2 10^3/uL (4.5-11.0) 08/21/18 08:30 RBC 2.65 10^6/uL (3.5-6.1) L 08/21/18 08:30 Hgb 7.5 g/dL (12.0-16.0) L 08/21/18 08:30 Hct 23.4 % (36.0-48.0) L 08/21/18 08:30 MCV 88.3 fl (80.0-105.0) 08/21/18 08:30 MCH 28.3 pg (25.0-35.0) 08/21/18 08:30 MCHC 32.1 g/dl (31.0-37.0) 08/21/18 08:30 RDW 15.1 % (11.5-14.5) H 08/21/18 08:30 Plt Count 400 10^3/uL (120.0-450.0) 08/21/18 08:30 MPV 10.1 fl (7.0-11.0) 08/21/18 08:30 Neut % (Auto) 69.3 % (50.0-68.0) H 08/21/18 08:30 Lymph % (Auto) 23.5 % (22.0-35.0) 08/21/18 08:30 Dewey % (Auto) 6.5 % (1.0-6.0) H 08/21/18 08:30 Eos % (Auto) 0.5 % (1.5-5.0) L 08/21/18 08:30 Baso % (Auto) 0.2 % (0.0-3.0) 08/21/18 08:30 Lymph # (Auto) 1.5 (1.2-3.4) 08/21/18 08:30 Dewey # (Auto) 0.4 (0.1-0.6) 08/21/18 08:30 Eos # (Auto) 0.0 (0.0-0.7) 08/21/18 08:30 Baso # (Auto) 0.01 K/mm3 (0.0-2.0) 08/21/18 08:30 Absolute Neuts (auto) 4.27 (1.4-6.5) 08/21/18 08:30 PT 13.4 SECONDS (9.4-12.5) H 08/17/18 10:30 INR 1.19 08/17/18 10:30 APTT 37.7 Seconds (26.9-38.3) 08/17/18 10:30 pO2 36 mm/Hg (30-55) 08/17/18 11:00 VBG pH 7.41 (7.32-7.43) 08/17/18 11:00 VBG pCO2 44.0 (40-60) 08/17/18 11:00 VBG HCO3 27.9 mmol/l (21-28) 08/17/18 11:00 VBG Total CO2 29.3 mmol.L (22-28) H 08/17/18 11:00 VBG O2 Sat (Calc) 77.1 % (40-65) H 08/17/18 11:00 VBG Base Excess 2.7 mmol/L (0.0-2.0) H 08/17/18 11:00 VBG Potassium 4.1 mmol/L (3.6-5.2) 08/17/18 11:00 Sodium 141.0 mmol/L (132-148) 08/17/18 11:00 Chloride 108.0 mmol/L (98-107) H 08/17/18 11:00 Glucose 193 mg/dl (65-105) H 08/17/18 11:00 Lactate 1.5 mmol/L (0.7-2.1) 08/17/18 11:00 FiO2 21.0 % 08/17/18 11:00 Sodium 140 mmol/L (132-148) 08/21/18 08:30 Potassium 3.8 mmol/L (3.6-5.0) 08/21/18 08:30 Chloride 112 mmol/L (98-107) H 08/21/18 08:30 Carbon Dioxide 21 mmol/L (21-33) 08/21/18 08:30 Anion Gap 11 (10-20) 08/21/18 08:30 BUN 40 mg/dL (7-21) H 08/21/18 08:30 Creatinine 2.2 mg/dl (0.7-1.2) H 08/21/18 08:30 Est GFR ( Amer) 26 08/21/18 08:30 Est GFR (Non-Af Amer) 22 08/21/18 08:30 POC Glucose (mg/dL) 123 mg/dL (65-110) H 08/21/18 06:18 Random Glucose 104 mg/dL (70-110) 08/21/18 08:30 Hemoglobin A1c 5.2 % (4.2-6.5) 08/18/18 07:30 Calcium 7.5 mg/dL (8.4-10.5) L 08/21/18 08:30 Phosphorus 4.3 mg/dL (2.5-4.5) 08/18/18 07:30 Magnesium 1.7 mg/dL (1.7-2.2) 08/18/18 07:30 Iron 10 ug/dL (45-180) L 08/17/18 14:20 TIBC 207 ug/dL (265-497) L 08/17/18 14:20 % Saturation 5 % (20-55) L 08/17/18 14:20 Transferrin 142.03 mg/dL (206-381) L 08/17/18 14:20 Ferritin 899.0 ng/mL 08/17/18 14:20 Total Bilirubin 0.2 mg/dL (0.2-1.3) 08/21/18 08:30 AST 31 U/L (14-36) 08/21/18 08:30 ALT 17 U/L (7-56) 08/21/18 08:30 Alkaline Phosphatase 76 U/L (38-126) 08/21/18 08:30 Troponin I 0.06 ng/mL 08/17/18 21:59 NT-Pro-B Natriuret Pep 6750 pg/mL (0-450) H 08/17/18 11:40 Total Protein 5.6 g/dL (5.8-8.3) L 08/21/18 08:30 Total Protein (PEP) 5.3 g/dL (6.1-8.1) L 08/20/18 07:00 Albumin 2.9 g/dL (3.0-4.8) L 08/21/18 08:30 Globulin 2.7 gm/dL 08/21/18 08:30 Albumin/Globulin Ratio 1.1 (1.1-1.8) 08/21/18 08:30 Triglycerides 85 mg/dL (35-160) 08/18/18 07:30 Cholesterol 110 mg/dL (130-200) L 08/18/18 07:30 LDL Cholesterol Direct < 30 mg/dL (0-129) 08/18/18 07:30 HDL Cholesterol 41 mg/dL (29-60) 08/18/18 07:30 25-OH Vitamin D Total 35.1 NG/ML (30.0-100.0) 08/20/18 07:00 Procalcitonin 0.32 NG/ML (0.19-0.49) 08/17/18 14:20 TSH 3rd Generation 1.68 mIU/mL (0.46-4.68) 08/17/18 14:45 Venous Blood Potassium 4.1 mmol/L (3.6-5.2) 08/17/18 11:00 Urine Color Yellow (YELLOW) 08/17/18 12:30 Urine Appearance Clear (CLEAR) 08/17/18 12:30 Urine pH 6.0 (4.7-8.0) 08/17/18 12:30 Ur Specific Roslyn 1.025 (1.005-1.035) 08/17/18 12:30 Urine Protein 100 mg/dL (<30 mg/dL) H 08/17/18 12:30 Urine Glucose (UA) Negative mg/dL (NEGATIVE) 08/17/18 12:30 Urine Ketones Negative mg/dL (NEGATIVE) 08/17/18 12:30 Urine Blood Negative (NEGATIVE) 08/17/18 12:30 Urine Nitrate Negative (NEGATIVE) 08/17/18 12:30 Urine Bilirubin Negative (NEGATIVE) 08/17/18 12:30 Urine Urobilinogen 0.2 E.U./dL (<1 E.U./dL) 08/17/18 12:30 Ur Leukocyte Esterase Negative Livan/uL (NEGATIVE) 08/17/18 12:30 Urine RBC 0 - 2 /hpf (0-2) 08/17/18 12:30 Urine WBC 1 - 3 /hpf (0-6) 08/17/18 12:30 Ur Epithelial Cells 4 - 5 /hpf (0-5) 08/17/18 12:30 Amorphous Sediment Few /hpf (NONE) 08/17/18 12:30 Urine Bacteria Many /hpf (NONE) 08/17/18 12:30 Coarse Granular Casts Trace /hpf (NONE) 08/17/18 12:30 Waxy Casts 0 - 2 /hpf (NONE) 08/17/18 12:30 Urine Other Uyeast /hpf 08/17/18 12:30 Influenza Typ A,B (EIA) Negative for flu a/b (NEGATIVE) 08/17/18 10:30 Attending/Attestation - Attestation I have personally seen and examined this patient.: Yes I have fully participated in the care of the patient.: Yes I have reviewed all pertinent clinical information, including history, physical exam and plan: Yes Notes (Text): 08/21/18 18:06 78 year old female with past medical history of hypertension, diabetes, and CKD who presented with complaint of fever, cough and generalized weakness. She was found to have multifocal infiltrates with pulmonary congestion on CXR and started on iv antibiotics. Echocardiogram reviewed showing preserved EF; diastolic dysfunction. She was being followed by cardiology. She was also followed by nephrology for acute on chronic renal failure which improved with iv fliuds. Hematology was following for acute on chronic anemia, likely secondary to anemia of chronic renal disease with possible bone marrow supression from sepsis. Blood pressure medications were adjusted by nephrology today for hypertension. Patient is discharged home to follow up with pmd, audio visual arts director and package handler. Elvin Vail MD Hospitalist.
[2018-08-23 12:29] LABS: ALBUMIN (PEP) 2.8 g/dL (3.8-4.8); ALPHA-1-GLOBULIN (PEP) 0.4 g/dL (0.2-0.3)
== END 2018-08-21 17:11 | disposition home or self-care (01) | DRG 584 ==
LOC: ED 09:55 → ERH 11:40 → 5RSO 17:59
PROVIDERS: ADMIT Internal Medicine; ATTEND Internal Medicine
DX: A41.9 Sepsis, unspecified organism (principal); J18.9 Pneumonia, unspecified organism; N17.9 Acute kidney failure, unspecified; E11.22 Type 2 diabetes mellitus with diabetic chronic kidney disease; E11.319 Type 2 diabetes mellitus with unspecified diabetic retinopathy without macular edema; I08.1 Rheumatic disorders of both mitral and tricuspid valves; I50.9 Heart failure, unspecified; J44.1 Chronic obstructive pulmonary disease with (acute) exacerbation; I13.0 Hypertensive heart and chronic kidney disease with heart failure and stage 1 through stage 4 chronic kidney disease, or unspecified chronic kidney disease; N18.4 Chronic kidney disease, stage 4 (severe); D63.1 Anemia in chronic kidney disease; I27.20 Pulmonary hypertension, unspecified; Z79.84 Long term (current) use of oral hypoglycemic drugs; Z79.899 Other long term (current) drug therapy; Z90.710 Acquired absence of both cervix and uterus; Z98.42 Cataract extraction status, left eye; Z98.41 Cataract extraction status, right eye; K59.09 Other constipation